=== PATIENT | female | born 1935 | race Caucasian/White ===

== ENCOUNTER 2016-07-24 11:00 | Day surgery (SDC) | payer MEDICARE, BC ==
[2016-07-22 11:50] VITALS: BMI 27.1
[~2016-07-24 11:00] MED LIST: LACTATED RINGERS 1,000 ML IV SCH; MIDAZOLAM 2 MG/2 ML VIAL IV PRN; ONDANSETRON 4 MG/2 ML VIAL IVP ONE; Pre Op ABX Message 1 EACH MISC MISCELLANE ONE
[2016-07-24] MEDS ORDERED: fentaNYL (PF) 50 MCG/ML 2 ML AMP ONE (12:49)
[2016-07-24] MEDS ORDERED: SODIUM CHLORIDE 0.9% 50 ML with ceFAZolin 2,000 MG IV ONE ×2 (12:49)
[2016-07-24] MEDS ORDERED: NEOSTIGMINE 1 MG/ML 10 ML VIAL ONE (12:49)
[2016-07-24] MEDS ORDERED: GLYCOPYRROLATE 0.2 MG/ML 2 ML VIAL ONE (12:49)
[2016-07-24] MEDS ORDERED: PROPOFOL 10 MG/ML 20 ML VIAL IV ONE (12:49)
[2016-07-24] MEDS ORDERED: MIDAZOLAM 2 MG/2 ML VIAL ONE (12:49)
[2016-07-24] MEDS ORDERED: LIDOCAINE 1% INJ 10MG/ML (20 ML MDV) ONE (12:49)
[2016-07-24] MEDS ORDERED: ROPIVACAINE 5 MG/ML 30 ML VIAL ONE (12:49)
[2016-07-24] MEDS ORDERED: LIDOCAINE 2%-EPI 1:100,000 20 ML VIAL ONE (12:49)
[2016-07-24] MEDS ORDERED: ROCURONIUM BROMIDE 10 MG/ML 10 ML VIAL IV ONE (12:49)
[2016-07-24] MEDS ORDERED: HYDROmorphone (PF) 1 MG/ML ONE (12:49)
[2016-07-24] MEDS ORDERED: SUCCINYLCHOLINE CHLORIDE 100 MG/5 ML SYR IV ONE (12:49)
[2016-07-24] MEDS ORDERED: EPINEPHrine 4 MG in SODIUM CHLORIDE 0.9% IRRIGATIO 3,000 ML IRRIGATION ONE ×8 (13:24)
[2016-07-24] MEDS ORDERED: LACTATED RINGERS 1,000 ML IV ONE (15:08)
[2016-07-24] MEDS: HYDROmorphone 1 MG/ML 1 ML SYRINGE IVP PRN ×4 (15:20→16:00)
[2016-07-24 15:24] VITALS: TEMP 96.8
--- NOTE | 2016-07-24 16:13 | P.ONQ ---
Anesthesiology Proc Note - PNB - Peripheral Nerve Block Performed Left Interscalene Single Time Out Performed: Yes Procedure Start Time: 15:50 Procedure Stop Time: 16:00 Indication: Acute Post-Operative Pain, Analgesia Sedation Type: Sedate with meaningful contact maintained Preparation: Sterile Prep Position: Supine Catheter: None Needle Types: Other (see comment) (22go 2" stimuplex @.03Ma) Needle Size: 50mm (2") Needle Gauge: Other (see comment) (22 ga) Technique: Ultrasound Injectate: Other (see comment) (1% lido, 0.25% ropivicaine, epi 5 mcg/cc) Adjunct: Epinephrine (see comment for dilution ratio) (5 mcg/cc) Blood Aspirated: No Pain Paresthesia on Injection Noted: No Resistance on Injection: Normal Events: Uneventful and Well Tolerated
[2016-07-24] MEDS ORDERED: LIDOCAINE 2%-EPI 1:100,000 20 ML VIAL SUBMUCOSAL ONE (16:15)
[2016-07-24] MEDS ORDERED: ROPIVACAINE 5 MG/ML 30 ML VIAL MISCELLANE ONE (16:15)
[2016-07-24 17:06] VITALS: RESP 16
--- NOTE | 2016-07-24 17:47 | P.OP ---
Date of Procedure: 07/24/16 Procedure(s) Performed: PREOPERATIVE DIAGNOSES: 1. 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 2. Chronic impingement syndrome. 3. Acromioclavicular osteoarthritis. 4. Superior labral degenerative tear. 5. Long head biceps chronic rupture 6. Glenohumeral osteoarthritis POSTOPERATIVE DIAGNOSES: 1. Left shoulder rotator cuff tear (supraspinatus, infraspinatus, 3.5 cm). 2. Chronic impingement syndrome. 3. Severe humeral head osteoarthritis, grade 4 4. Acromioclavicular osteoarthritis. 5. Labral degenerative tear. 6. Adhesive capsulitis, mild. 7. Long head biceps chronic rupture PROCEDURES PERFORMED: 1. Left shoulder arthroscopy with mini open rotator cuff repair. 2. Arthroscopic partial distal clavicle excision 3. Arthroscopic lysis of adhesions with manipulation 4. Arthroscopic subacromial decompression 5. Arthroscopic debridement degenerative labral tear 6. Arthroscopic partial synovectomy ANESTHESIA: General plus interscalene block. ESTIMATED BLOOD LOSS: Less than 25 mL TOURNIQUET: None BASTING PULLER: Ofelia Wilkins PA-C (Assistance with: patient positioning, camera operation, retraction, fixation, closure, dressing) COMPLICATIONS: None. DISPOSITION: To postanesthesia care unit INDICATIONS: Patricia is an 81-year-old female with a history of a significant rotator cuff tear involving the left shoulder. This has caused severe disability with inability to raise the arm as well as significant pain. Symptoms have been ongoing and progressive over a 6-8 month time frame. MRI has confirmed findings and allowed for adequate preoperative planning. I have discussed options of treatment in detail and the patient wishes to proceed with an arthroscopic approach possibly combined with a mini open rotator cuff repair for treatment of this problem. However, considering the size and chronicity of the rotator cuff tear, the recovery may possibly be prolonged. I discussed potential risks and complications and the patient wishes to proceed with surgery. We have discussed these risks as being inclusive of, but not limited to: Bleeding, infection, scarring, discomfort, blood vessel and/or nerve damage, need for further surgery, failure of the repair, continued pain after surgery, stiffness, and continued weakness. She shows good understanding of these potential risks. The consent form has been signed. PROCEDURE: Appropriate consent was obtained from the patient. The patient was taken to the operating room and placed in the supine position. General anesthesia was initiated and after confirmation of adequate anesthesia, the patients left shoulder was examined. Initial range of motion showed flexion to 150, abduction to 150, external rotation to 60 and internal rotation to 50. Gentle manipulation was performed using Codmans paradox maneuver such that range of motion was improved to 170 flexion, 170 abduction, 75 external rotation and 75 internal rotation. The shoulder was stable. Next, the patient was rotated into the lateral decubitus position and stabilized to the table with a julien bag and padded straps. Care was taken to make sure that all pressure points were adequately padded. Bear-hugger was used along with bilateral leg sequential compression devices. Prepping and draping was completed in the usual aseptic fashion using ChloraPrep. The patient received intravenous antibiotics prior to incision. The shoulder was suspended from traction with 10 lbs. of weight in a position of 45 degrees abduction. Landmarks were outlined with a skin marking pen. Time out was called, confirming patient name, side, procedure, availability of equipment, and administration of antibiotics. A spinal needle was inserted into the glenohumeral joint and fluid was administered to distend the joint. No significant pressure was noted after 100 mL was administered. A posterior portal was created using an 11 blade and the arthroscopic canula, over a dull trocar, was carefully inserted into the joint. Arthroscopy then commenced. An anterior portal was inserted in the rotator interval area using inside-out technique. Biceps tendon was not apparent, indicating chronic rupture and retraction. Teres minor was normal. Hyaline cartilage of the glenoid was fairly normal except for a small full-thickness focal defect on the anterior aspect of the mid glenoid. This was debrided using a shaver, removing the unstable cartilage in this region. The humeral head however had severe grade 4 osteoarthritis involving the entire humeral head. There was really no significant normal cartilage remaining on the humeral head. Evaluation of the remainder of the rotator cuff showed significant full- thickness tearing involving the entire supraspinatus and part of the infraspinatus. The tear measured approximately 3.5 cm in size. Bursal tissue and impinging spur could be clearly seen through the rotator cuff defect which likely contributed to the tear. No loose bodies were noted in the joint. Superior labrum showed some degenerative tearing but was well-attached. Negative peel back sign. Loose fibers and the superior labrum were removed easily with a shaver. There was also evidence of minor degenerative labral tearing in the inferior area. Loose fibers of labrum in this area were debrided away back to stable labrum. Synovitis was noted superior to the superior labrum and within the rotator interval. This was debrided and removed where the capsule appeared inflamed, using an arthroscopic shaver. Attention was then directed to the subacromial space. The camera and instruments were redirected into the subacromial space and bursoscopy was performed. The patients bursa was inflamed and thickened, indicating chronic bursitis. A lateral portal was created using outside-in technique. The supraspinatus tendon was examined particularly closely. There was an approximately 3.5 cm full thickness tear, involving the supraspinatus and infraspinatus. Loose fibers of the tear were debrided back to stable tissue using a shaver and the footprint of the rotator cuff was abraded back to bleeding bone using a shaver and rasp. The undersurface of the acromion had frictional changes consistent with impingement syndrome. The underside of the acromion anteriorly was cleared of soft tissue using an arthroscopic radiofrequency ablator. The frictional changes of the rotator cuff matched the location of the rotator cuff tear in the critical zone. A formal subacromial decompression was performed using a alexandra. Approximately 4-5 mm of material was removed from the anterior-inferior corner of the acromion. This resection was beveled upwards laterally, and carried to the AC joint. The AC joint appeared arthritic with inferior spurring. This spurring was removed with a alexandra, co-planing the resection with the acromial resection. The rotator cuff tear was then repaired as follows. A mini open incision was created directly at the lateral portal and carried down through skin and into subcutaneous tissue and down to deltoid fascia. Deltoid fascia was split in line with its fibers for no more than 3.5 cm from the acromial border. Self- retaining retractor was applied without detaching any portion of the deltoid. Visualization was excellent. Any extraneous/degenerative tissue was removed manually with a dissecting scissor. Finishing touches with a rasp were applied to the rotator cuff footprint. Tag stitches were placed in the edge of the tear and mobility of the tear was tested. Mobility was adequate. First, one 4.75 mm preloaded anchor from [employer] was deployed just lateral to the articular margin at the medial side of the rotator cuff footprint. Mattress sutures were deployed into the appropriate location on the tendons. Next, fiber tape was used in 2 locations one on the anterior portion of the supraspinatus, and the other on the infraspinatus with reverse mattress deployment. These sutures were then deployed into 4.75 mm Ar[employer] swivel lock anchors. It should be noted that the tension on the sutures was adjusted properly prior to deployment of the anchor. There was excellent coverage of the rotator cuff over the footprint using this technique. Subsequently, the mattress sutures were tied down securely. Rotation of the shoulder showed complete closure of the cuff defect. The repair was stable. Subsequently, O Vicryl suture was used in the deltoid split, followed by 2-0 Vicryl in the subcutaneous tissues. A running 3-0 Monocryl subcuticular stitch was then used for the mini open surgical incision. 4-0 Monocryl was used to close the portal holes. Dermabond was applied as well as sterile dressing. The shoulder was then placed into a sling shot type sling and the patient was transferred to recovery room in stable condition. Sponge and needle counts were correct.
[2016-07-24 18:14] VITALS: BP 159/77; PULSE 70
== END 2016-07-24 18:53 | disposition home or self-care (01) ==
LOC: OR 11:00
PROVIDERS: ATTEND Orthopaedic Surgery
DX: M75.122 Complete rotator cuff tear or rupture of left shoulder, not specified as traumatic (principal); M75.42 Impingement syndrome of left shoulder; M19.012 Primary osteoarthritis, left shoulder; M25.412 Effusion, left shoulder; S43.492A Other sprain of left shoulder joint, initial encounter; M75.02 Adhesive capsulitis of left shoulder; S46.112A Strain of muscle, fascia and tendon of long head of biceps, left arm, initial encounter; M65.812 Other synovitis and tenosynovitis, left shoulder; X58.XXXA Exposure to other specified factors, initial encounter; E78.5 Hyperlipidemia, unspecified; Z79.899 Other long term (current) drug therapy; Z88.1 Allergy status to other antibiotic agents
CPT/HCPCS: 64415; 23412; 29824; 29825; C1713 ×2; C1894; J0171; J2250; J2710; J2405; J2001; J3010; J1170; J0690; J2795; J0330; J2704

== ENCOUNTER 2024-03-12 19:11 | Emergency (ER) | payer MEDICARE, BC ==
[2024-03-12 19:25] VITALS: TEMP 97.5
--- NOTE | 2024-03-12 19:43 | ED ---
General Adult HPI - General Chief complaint: Fall Stated complaint: Fall Time Seen by Provider: 03/12/24 19:13 Source: EMS Mode of arrival: EMS Limitations: altered mental status - History of Present Illness Initial comments: Dictation was produced using Superhuman dictation software. please excuse any grammatical, word or spelling errors. Chief Complaint: 88-year-old female presents to the emergency department after being found down History of Present Illness: Patient is an 88-year-old female presents to the emergency department after being found down the garage floor. Patient was brought in by EMS patient had been on the ground for unknown amount of time. Patient has worsening dementia. Patient is a poor historian can tell me her name but cannot tell me anything else. She however denies any pain. The ROS documented in this emergency department record has been reviewed and confirmed by me. Those systems with pertinent positive or negative responses have been documented in the HPI. All other systems are other negative and/or noncontributory. - Related Data Home Medications Medication Instructions Recorded Confirmed Simvastatin [Zocor] 20 mg PO DAILY 03/07/15 06/21/17 Multivit-Min/Iron/Folic Acid/K 2 cap PO DAILY 07/22/16 06/21/17 [Women's Multivitamin] Ascorbic Acid [Vitamin C with Heather 500 mg PO DAILY 06/11/17 06/11/17 Hips] Calcium/Magnesium/Zinc 1 tab PO DAILY 06/11/17 06/21/17 [Rehbbsi-Jsmqclpgr-Xyfk Tablet] Cholecalciferol [Vitamin D3 (10 400 unit PO DAILY 06/11/17 06/11/17 Mcg = 400 Iu)] Lutein 6 Mg 6 mg PO DAILY 06/11/17 06/11/17 Previous Rx's Medication Instructions Recorded Aspirin 325 mg PO BID #120 tab 06/21/17 HYDROcodone/APAP 5-325MG [[place] 1 - 2 each PO Q4-6H PRN #90 tab 06/21/17 5-325] Sennosides-Docusate Sodium 1 tab PO BID #60 tablet 06/21/17 [Senokot-S] Allergies Allergy/AdvReac Type Severity Reaction Status Date / Time erythromycin base Allergy unknow Verified 03/12/24 19:25 peanut [Peanut Butter] AdvReac stomach Verified 03/12/24 19:25 ache Review of Systems ROS Statement: Those systems with pertinent positive or pertinent negative responses have been documented in the HPI. ROS Other: All systems not noted in ROS Statement are negative. Past Medical History Past Medical History: Cancer, Hyperlipidemia Additional Past Medical History / Comment(s): hx ulcer, skin cancer rt thigh History of Any Multi-Drug Resistant Organisms: None Reported Past Surgical History: Adenoidectomy, Back Surgery, Bowel Resection, Hernia Repair, Hysterectomy, Joint Replacement, Tonsillectomy Additional Past Surgical History / Comment(s): rt knee replacement, back -L4 and L5, isrrael cataracts, colonoscopy Past Anesthesia/Blood Transfusion Reactions: No Reported Reaction Additional Past Anesthesia/Blood Transfusion Reaction / Comment(s): . Past Psychological History: No Psychological Hx Reported Past Alcohol Use History: None Reported Past Drug Use History: None Reported - Past Family History Sister(s) Family Medical History: Cancer Mother Family Medical History: Cancer Additional Family Medical History / Comment(s): brain Father Family Medical History: Renal Disease Additional Family Medical History / Comment(s): Father of kidney disease at age 80 yrs. Brother(s) Family Medical History: Diabetes Mellitus Daughter(s) Family Medical History: No Reported History (Patient has 3 daughters no major medical problems) Son(s) Family Medical History: No Reported History General Exam - General Exam Comments Initial Comments: PHYSICAL EXAM: General Impression: Alert and oriented x1/4, not in acute distress HEENT: Normocephalic atraumatic, extra-ocular movements intact, pupils equal and reactive to light bilaterally, mucous membranes moist. Cardiovascular: Heart regular rate and rhythm Chest: Able to complete full sentences, no retractions, no tachypnea Abdomen: abdomen soft, non-tender, non-distended, no organomegaly Musculoskeletal: Pulses present and equal in all extremities, no peripheral edema Motor: no focal deficits noted Neurological: CN II-XII grossly intact, no focal motor or sensory deficits noted Skin: Intact with no visualized rashes Psych: Normal affect and mood Limitations: altered mental status Course Vital Signs 03/12/24 03/12/24 19:16 19:25 Temperature 97.5 F L Pulse Rate 66 Respiratory 18 Rate Blood Pressure 100/75 O2 Sat by Pulse 96 Oximetry EKG Findings - EKG Comments: EKG Findings:: My EKG interpretation: Ventricular rate 52, sinus bradycardia, RI interval 164, cures 149, QTc 480. No RI prolongation, no QTC prolongation, no ST or T-wave changes noted. Widened QRS compared to EKG from June 09, 2017, this EKG is nonspecific Medical Decision Making - Medical Decision Making Was pt. sent in by a medical professional or institution (, PA, FORENSIC PHOTOGRAPHER, urgent care, hospital, or care home...) When possible be specific @ -No Did you speak to anyone other than the patient for history (EMS, parent, family, police, friend...)? What history was obtained from this source @ -No Did you review nursing and triage notes (agree or disagree)? Why? @ -I reviewed and agree with nursing and triage notes Were old charts reviewed (outside hosp., previous admission, EMS record, old EKG, old radiological studies, urgent care reports/EKG's, care home records)? Report findings @ -No old charts were reviewed Differential Diagnosis (chest pain, altered mental status, abdominal pain women, abdominal pain men, vaginal bleeding, musculoskeletal, weakness, fever, dyspnea, syncope, headache, dizziness, GI bleed, back pain, seizure, CVA, palpatations, mental health)? @ -Differential Dizziness: Benign paroxysmal positional Vertigo, Meniere's disease, otitis media, acoustic neuroma, vertebrobasilar insufficiency, cerebellar stroke, encephalitis, hypovolemic, arrhythmia, coronary artery syndrome, anemia, this is not meant to be an all-inclusive list EKG interpreted by me (3pts min.). @ -See above X-rays interpreted by me (1pt min.). @ -X-ray pelvis x-ray shows no acute processes CT interpreted by me (1pt min.). @ -CT head right frontal lobe mass with vasogenic edema C-spine shows no acute processes chest abdomen pelvis shows no acute processes U/S interpreted by me (1pt. min.). @ -None done What testing was considered but not performed or refused? (CT, X-rays, U/S, labs)? Why? @ -None What meds were considered but not given or refused? Why? @ -None Was smoking cessation discussed for >3mins.? @ -No Were there social determinants of health that impacted care today? How? (Homelessness, low income, unemployed, alcoholism, drug addiction, transportation, low edu. Level, literacy, decrease access to med. care, custodial, rehab)? @ -No Was there de-escalation of care discussed even if they declined (Discuss DNR or withdrawal of care, Hospice)? DNR status @ -No What co-morbidities impacted this encounter? (DM, HTN, Smoking, COPD, CAD, Cancer, CVA, ARF, Chemo, Hep., AIDS, mental health diagnosis, sleep apnea, morbid obesity)? @ -None Was patient admitted / discharged? Hospital course, mention meds given and route, prescriptions, significant lab abnormalities, going to OR and other per tinent info. @ -80-year-old female presents emergency department with dizziness. Vital signs upon arrival are within acceptable limits. There is concern of fall. Family arrived at the bedside later states that she was found on the carpet in the garage on the ground. It sounds clear how long patient was on the floor. Evaluation obtained. CBC, metabolic panel is unremarkable. Troponin is viry vated 0.303. Family did not report chest pain but they did report that she has been complaining of dizziness. Patient given Decadron after CT brain showed intracranial mass with surrounding vasogenic edema. Family request transfer to [facility]. Did you discuss the management of the patient with other professionals (professionals i.e. , PA, FORENSIC PHOTOGRAPHER, lab, RT, psych nurse, healthcare social worker, track supervisor, teacher, first aid officer, leather case finisher)? Give summary @ -Discussed with [facility] transfer line. Dr. Obrien or neurosurgery agreeeable for transfer. case also discussed w ER physician Dr. Coats for ER to ER transfer. Was critical care preformed (if so, how long)? @ -No Undiagnosed new problem with uncertain prognosis? @ -No Drug Therapy requiring intensive monitoring for toxicity (Heparin, Nitro, Insulin, Cardizem)? @ -No Were any procedures done? @ -No Diagnosis/symptom? Acute, or Chronic, or Acute on Chronic? Uncomplicated (without systemic symptoms) or Complicated (systemic symptoms)? @ -Brain mass, unclear etiology associated with dizziness and fall Side effects of treatment? @ -No Exacerbation, Progression, or Severe Exacerbation? @ -No Poses a threat to life or bodily function? How? (Chest pain, USA, VT, pneumonia, PE, COPD, DKA, ARF, appy, cholecystitis, CVA, Diverticulitis, Homicidal, Suicidal, threat to staff... and all critical care pts) @ -yes - Lab Data Result diagrams: 03/12/24 19:36 03/12/24 19:36 Lab Results 03/12/24 03/12/24 03/12/24 Range/Units 19:36 19:36 19:36 WBC 14.4 H (3.8-10.6) k/uL RBC 4.80 (3.80-5.40) m/uL Hgb 14.7 (11.4-16.0) gm/dL Hct 44.7 (34.0-46.0) % MCV 93.1 (80.0-100.0) fL MCH 30.7 (25.0-35.0) pg MCHC 32.9 (31.0-37.0) g/dL RDW 13.5 (11.5-15.5) % Plt Count 259 (150-450) k/uL MPV 8.8 Neutrophils % 83 % Lymphocytes % 10 % Monocytes % 6 % Eosinophils % 0 % Basophils % 0 % Neutrophils # 11.9 H (1.3-7.7) k/uL Lymphocytes # 1.5 (1.0-4.8) k/uL Monocytes # 0.9 (0-1.0) k/uL Eosinophils # 0.0 (0-0.7) k/uL Basophils # 0.0 (0-0.2) k/uL PT 11.1 (10.0-12.5) sec INR 1.0 (<1.2) APTT 22.7 (22.0-30.0) sec Sodium 139 (137-145) mmol/L Potassium 3.7 (3.5-5.1) mmol/L Chloride 107 (98-107) mmol/L Carbon Dioxide 23 (22-30) mmol/L Anion Gap 9 mmol/L BUN 18 H (7-17) mg/dL Creatinine 0.54 (0.52-1.04) mg/dL Est GFR (CKD-EPI)AfAm >90 (>60 ml/min/1.73 sqM) Est GFR (CKD-EPI)NonAf 85 (>60 ml/min/1.73 sqM) Glucose 107 H (74-99) mg/dL Calcium 9.1 (8.4-10.2) mg/dL Total Bilirubin 1.5 H (0.2-1.3) mg/dL AST 101 H (14-36) U/L ALT 33 (4-34) U/L Alkaline Phosphatase 62 (38-126) U/L Troponin I (0.000-0.034) ng/mL Total Protein 6.0 L (6.3-8.2) g/dL Albumin 3.6 (3.5-5.0) g/dL Urine Opiates Screen (NotDetected) Ur Oxycodone Screen (NotDetected) Urine Methadone Screen (NotDetected) Ur Barbiturates Screen (NotDetected) U Tricyclic Antidepress (NotDetected) Ur Phencyclidine Scrn (NotDetected) Ur Amphetamines Screen (NotDetected) U Methamphetamines Scrn (NotDetected) U Benzodiazepines Scrn (NotDetected) Urine Cocaine Screen (NotDetected) U Marijuana (THC) Screen (NotDetected) Serum Alcohol <10 mg/dL Blood Type Blood Type Recheck Bld Type Recheck Status Antibody Screen Spec Expiration Date 03/12/24 03/12/24 03/12/24 Range/Units 19:36 19:36 19:47 WBC (3.8-10.6) k/uL RBC (3.80-5.40) m/uL Hgb (11.4-16.0) gm/dL Hct (34.0-46.0) % MCV (80.0-100.0) fL MCH (25.0-35.0) pg MCHC (31.0-37.0) g/dL RDW (11.5-15.5) % Plt Count (150-450) k/uL MPV Neutrophils % % Lymphocytes % % Monocytes % % Eosinophils % % Basophils % % Neutrophils # (1.3-7.7) k/uL Lymphocytes # (1.0-4.8) k/uL Monocytes # (0-1.0) k/uL Eosinophils # (0-0.7) k/uL Basophils # (0-0.2) k/uL PT (10.0-12.5) sec INR (<1.2) APTT (22.0-30.0) sec Sodium (137-145) mmol/L Potassium (3.5-5.1) mmol/L Chloride (98-107) mmol/L Carbon Dioxide (22-30) mmol/L Anion Gap mmol/L BUN (7-17) mg/dL Creatinine (0.52-1.04) mg/dL Est GFR (CKD-EPI)AfAm (>60 ml/min/1.73 sqM) Est GFR (CKD-EPI)NonAf (>60 ml/min/1.73 sqM) Glucose (74-99) mg/dL Calcium (8.4-10.2) mg/dL Total Bilirubin (0.2-1.3) mg/dL AST (14-36) U/L ALT (4-34) U/L Alkaline Phosphatase (38-126) U/L Troponin I 0.303 H* (0.000-0.034) ng/mL Total Protein (6.3-8.2) g/dL Albumin (3.5-5.0) g/dL Urine Opiates Screen Not Detected (NotDetected) Ur Oxycodone Screen Not Detected (NotDetected) Urine Methadone Screen Not Detected (NotDetected) Ur Barbiturates Screen Not Detected (NotDetected) U Tricyclic Antidepress Not Detected (NotDetected) Ur Phencyclidine Scrn Not Detected (NotDetected) Ur Amphetamines Screen Not Detected (NotDetected) U Methamphetamines Scrn Not Detected (NotDetected) U Benzodiazepines Scrn Not Detected (NotDetected) Urine Cocaine Screen Not Detected (NotDetected) U Marijuana (THC) Screen Not Detected (NotDetected) Serum Alcohol mg/dL Blood Type O Positive Blood Type Recheck No Previous Record Bld Type Recheck Status CABO Indicated Antibody Screen NEGATIVE Spec Expiration Date 03/15/20242335 Disposition Clinical Impression: Brain mass Disposition: OTHER INSTITUTION NOT DEFINED Condition: Fair Referrals: Darian Doherty DO [Primary Care Provider] - 1-2 days - Out of Hospital Transfer - Req. Specs Out of Hospital Transfer - Requested Specifics: Other Emergency Center ([facility]
[2024-03-12 20:10] LABS: Prothrombin Time 11.1 sec (10.0-12.5)
[2024-03-12 20:15] LABS: ALT 33 U/L (4-34); AST 101 U/L (14-36); African American GFR (CKD) >90 (>60 ml/min/1.73 sqM); Albumin 3.6 g/dL (3.5-5.0); Alcohol <10 mg/dL; Alkaline Phosphatase 62 U/L (38-126); Anion Gap 9 mmol/L; Blood Urea Nitrogen 18 mg/dL (7-17); Calcium 9.1 mg/dL (8.4-10.2); Carbon Dioxide 23 mmol/L (22-30); Chloride 107 mmol/L (98-107); Glucose 107 mg/dL (74-99); Non-African American GFR(CKD) 85 (>60 ml/min/1.73 sqM); Potassium 3.7 mmol/L (3.5-5.1); Sodium 139 mmol/L (137-145); Total Bilirubin 1.5 mg/dL (0.2-1.3)
[2024-03-12 20:17] LABS: Partial Thromboplastin Time 22.7 sec (22.0-30.0)
--- NOTE | 2024-03-12 20:22 | XR ---
EXAMINATION TYPE: XR pelvis AP view DATE OF EXAM: 03/12/2024 8:14 PM CLINICAL INDICATION: Female, 88 years old with history of Trauma; [facility] COMPARISON: None TECHNIQUE: XR pelvis AP view, examined in a single projection. FINDINGS: There is no evidence of fracture or dislocation. There is no soft tissue abnormality. No a bnormal calcifications are present. The spine appears intact. The hips appear intact. Osteophyte form ation of the superior acetabulum bilaterally with mild joint space narrowing. Severe joint space narr owing of the right hip and mild of the left hip. IMPRESSION: No acute osseous pathology. Severe right hip osteoarthrosis.
--- NOTE | 2024-03-12 20:23 | XR ---
EXAMINATION TYPE: XR chest 1V portable DATE OF EXAM: 03/12/2024 8:14 PM CLINICAL INDICATION: Female, 88 years old with history of trauma; H COMPARISON: Chest radiographs from TECHNIQUE: XR chest 1V portable Frontal view of the chest. FINDINGS: Lungs/Pleura: Low lung volumes are present. There is no evidence of pleural effusion, focal consolida tion, or pneumothorax. Pulmonary vascularity: Unremarkable. Heart/mediastinum: Cardiomediastinal silhouette is prominent in size. Atherosclerotic calcifications are seen in the aorta. Musculoskeletal: No acute osseous pathology. Other findings: None Lines/Tubes: IMPRESSION: Low lung volumes with a generalized hazy appearance which could represent atelectasis versus pulmonar y edema correlate with serum BNP.
[2024-03-12 20:29] LABS: Basophils % (A) 0 %; Eosinophils % (A) 0 %; HCT 44.7 % (34.0-46.0); HGB 14.7 gm/dL (11.4-16.0); Lymphocytes # (A) 1.5 k/uL (1.0-4.8); Lymphocytes % (A) 10 %; MCH 30.7 pg (25.0-35.0); MCHC 32.9 g/dL (31.0-37.0); MCV 93.1 fL (80.0-100.0); Mean Platelet Volume 8.8; Monocytes # (A) 0.9 k/uL (0-1.0); Monocytes % (A) 6 %; Neutrophils # (A) 11.9 k/uL (1.3-7.7); Neutrophils % (A) 83 %; Platelet Count 259 k/uL (150-450); RDW 13.5 % (11.5-15.5); WBC 14.4 k/uL (3.8-10.6)
[2024-03-12 20:33] LABS: Amphetamine Screen,Urine Not Detected (NotDetected); Barbiturate Screen,Urine Not Detected (NotDetected); Benzodiazepines Screen,Urine Not Detected (NotDetected); Cocaine Screen,Urine Not Detected (NotDetected); Methadone Screen, Urine Not Detected (NotDetected); Opiate Screen,Urine Not Detected (NotDetected); Oxycodone Screen, Urine Not Detected (NotDetected); Phencyclidine Screen,Urine Not Detected (NotDetected); Tricyclic Antidepressant,Urine Not Detected (NotDetected); Urn Cannabinoid Scrn Not Detected (NotDetected)
--- NOTE | 2024-03-12 21:00 | CT ---
EXAMINATION TYPE: CT brain cspine wo con CT DLP: 2998.5 mGycm, Automated exposure control for dose reduction was used. DATE OF EXAM: 03/12/2024 8:48 PM COMPARISON: None. CLINICAL INDICATION: Female, 88 years old with history of trauma; fall. pt found laying on floor AMS TECHNIQUE: Brain: Multiple axial CT images of the brain were obtained without IV contrast. Cspine: Axial CT images from the skull base to the inferior aspect of T2 we obtained without intraven ous contrast. Coronal and sagittal reformatted images were also reviewed. . FINDINGS: Brain: Extra-axial spaces: No abnormal extra-axial fluid collections. Ventricular system: Dilatation in proportion to cerebral atrophy. Cerebral parenchyma: There is vasogenic edema within the right frontal lobe surrounding a curvilinear high density lesion without line is thought to represent a sphere. Etiology uncertain. No evidence f or intracranial hemorrhage. Cerebral atrophy. No acute intraparenchymal hemorrhage. The rodrigues-white j unction is well differentiated. Cerebellum: Unremarkable. Mass effect: No evidence of midline shift. Intracranial vasculature: Atherosclerotic calcifications of the intracranial vessels. Soft tissues: Normal. Calvarium/osseous structures: No depressed skull fracture. Paranasal sinuses and mastoid air cells: Clear. Visualized orbits: Bilateral aphakia Cervical spine: Fracture: None. Osseous structures: Multilevel degenerative disc disease changes with endplate spurring and disc oste ophyte complex's. Vertebral alignment: Within normal limits. Spinal canal/Neural Foramina: No evidence of significant spinal canal narrowing. No evidence for sign ificant neural foraminal stenosis. Neck soft tissues: Prevertebral soft tissues are within normal limits. Other: The airway is patent. The lung apices are clear. IMPRESSION: 1. No evidence for intracranial hemorrhage. 2. Right frontal lobe vasogenic edema around a curvilinear high density lesion thought to be calcifi cation surrounding possibly a meningioma versus other etiologies. Further evaluation with MRI with IV contrast recommended. 3. No evidence of cervical spine fracture. 4. Moderate multilevel degenerative disc disease.
--- NOTE | 2024-03-12 21:19 | CT ---
EXAMINATION TYPE: CT ChestAbdPelvis w con CT DLP: 2998.5 mGycm, Automated exposure control for dose reduction was used. DATE OF EXAM: 03/12/2024 8:47 PM COMPARISON: None. CLINICAL INDICATION: Female, 88 years old with history of trauma; PHH, fall. pt found laying on floor AMS Technique: CT ChestAbdPelvis w con; Multiple axial images were obtained. Two-dimensional coronal and sagittal reconstructions were obtained. Contrast used:100ml mL of Isovue 300 with IV Contrast, Oral contrast used: without Oral Contrast Findings: CHEST: LUNGS/ PLEURA: No focal consolidation, pneumothorax or pleural effusion. 4 mm right middle lobe pulmonary nodule. AIRWAY: Patent and unremarkable. HEART: Size within normal limits. MEDIASTINUM: No gross evidence of adenopathy. VASCULATURE: No aortic aneurysm. MUSCULOSKELETAL: Mild wedging of the anterior aspect of T8 vertebral body. SOFT TISSUES/LYMPH NODES: Unremarkable. LOWER NECK: No significant findings. ABDOMEN: ABDOMEN LIVER: Diffusely hypoattenuating parenchyma. GALLBLADDER AND BILE DUCTS: Unremarkable. PANCREAS: Unremarkable. SPLEEN: Unremarkable. ADRENAL GLANDS: Unremarkable. KIDNEYS AND URETERS: Nonobstructing 2 mm right calculus. No left intrarenal hydronephrosis. Bilateral simple appearing renal cysts. PELVIS BLADDER: Unremarkable REPRODUCTIVE: Unremarkable. ABDOMEN & PELVIS STOMACH AND BOWEL: No evidence of bowel obstruction. Scattered colonic diverticula. PERITONEUM/RETROPERITONEUM: No evidence of pneumoperitoneum or free fluid. VASCULATURE: Moderate atherosclerotic calcifications are present throughout the abdominal aorta and i ts branches. No evidence of aortic aneurysm. MUSCULOSKELETAL: No acute osseous abnormalities. Moderate disc degeneration changes are present throu ghout the thoracolumbar spine. Moderate degeneration changes of the hips with joint space narrowing o steophyte formation. Moderate to severe degeneration changes throughout the spine. LYMPH NODES: No gross evidence for lymphadenopathy. SOFT TISSUE/ABDOMINAL WALL: Unremarkable IMPRESSION: 1. Indeterminate T8 vertebral body wedging correlate with mid back pain consider MRI. No additional evidence for acute traumatic process. 2. Mild hepatic steatosis. 3. Bilateral simple appearing renal cysts. 4. No obstructive right renal calculi. 5. Scattered colonic diverticula.
[2024-03-12] MEDS: DEXAMETHASONE SOD PHOSPHATE 10 MG/ML 1 ML VIAL IV STA (21:23)
[2024-03-12 21:57] VITALS: BP 135/70; PULSE 68; RESP 16
[2024-03-12] MEDS: SODIUM CHLORIDE 0.9% 1,000 ML IV STA (22:11)
[2024-03-12 22:53] LABS: Appearance,Urine Clear (Clear); Bacteria,Urine Rare /hpf; Bilirubin,Urine Negative (Negative); Blood,Urine Small (Negative); Budding Yeast,Urine Rare /hpf; Color,Urine Yellow; Glucose,Urine (UA) Trace (Negative); Ketones,Urine 2+ (Negative); Leukocyte Esterase,Urine Small (Negative); Nitrite,Urine Negative (Negative); Protein,Urine 1+ (Negative); RBC,Urine 2 /hpf (0-5); Specific Gravity,Urine 1.025 (1.001-1.035); Squamous Epithelial Cell,Urine 1 /hpf (0-4); Urobilinogen,Urine <2.0 mg/dL (<2.0); WBC,Urine 5 /hpf (0-5)
== END 2024-03-12 22:54 | disposition other institution (70) ==
LOC: EC 19:11
CPT/HCPCS: 36415; 70450; 71045; 71260; 72125; 72170; 74177; 80053; 80306; 80320; 81001; 82550; 84484; 85025; 85610; 85730; 86850; 86900; 86901; 93005; 96374; 99285

== ENCOUNTER 2024-04-16 01:10 | Inpatient (IN) | payer MEDICARE, BC ==
--- NOTE | 2024-04-16 01:19 | ED ---
Fall HPI - General Chief Complaint: Fall Stated Complaint: Fall Time Seen by Provider: 04/16/24 01:18 Source: EMS, RN notes reviewed, old records reviewed Mode of arrival: EMS Limitations: altered mental status, physical limitation - History of Present Illness Initial Comments: This is an 88-year-old female to the ER for evaluation of deformity of the right lower extremity concern for hip fracture not bearing weight on her right side complaining of pain with movement. 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 Witnessed: yes, by living facility staff Place Fall Occurred: home Loss of Consciousness: none Prolonged Down Time?: no Symptoms Prior to Fall: none Location - Extremities: Right: Leg Severity: severe Severity scale (1-10): 10 Context: tripped/slipped Associated Symptoms: denies - Related Data Home Medications Medication Instructions Recorded Confirmed Acetaminophen Tab [Tylenol] 500 mg PO TID 04/16/24 04/16/24 Losartan [Cozaar] 25 mg PO DAILY 04/16/24 04/16/24 Melatonin 3 mg PO HS 04/16/24 04/16/24 levETIRAcetam [Keppra] 500 mg PO Q12H 04/16/24 04/16/24 Previous Rx's Medication Instructions Recorded ALPRAZolam [Xanax] 0.25 mg PO Q12H PRN #4 tab 04/19/24 Aspirin [Adult Low Dose Aspirin EC] 81 mg PO BID 30 Days #60 tab 04/19/24 HYDROcodone/APAP 5-325MG [[place] 1 tab PO Q6HR PRN #28 tab 04/19/24 5-325] Magnesium Hydroxide [Milk of 2,400 mg PO DAILY PRN ml 04/19/24 Magnesia] QUEtiapine [SEROquel] 12.5 mg PO HS PRN #2 tab 04/19/24 Sennosides [Senokot] 2 tab PO DAILY PRN #60 tablet 04/19/24 Allergies Allergy/AdvReac Type Severity Reaction Status Date / Time erythromycin base Allergy Unknown Verified 04/16/24 10:15 peanut [Peanut Butter] AdvReac stomach Verified 04/16/24 10:15 ache Review of Systems ROS Statement: Those systems with pertinent positive or pertinent negative responses have been documented in the HPI. ROS Other: All systems not noted in ROS Statement are negative. Past Medical History Past Medical History: Cancer, Hyperlipidemia Additional Past Medical History / Comment(s): hx ulcer, skin cancer rt thigh History of Any Multi-Drug Resistant Organisms: None Reported Past Surgical History: Adenoidectomy, Back Surgery, Bowel Resection, Hernia Repair, Hysterectomy, Joint Replacement, Tonsillectomy Additional Past Surgical History / Comment(s): rt knee replacement, back -L4 and L5, [place] cataracts, colonoscopy Past Anesthesia/Blood Transfusion Reactions: No Reported Reaction Additional Past Anesthesia/Blood Transfusion Reaction / Comment(s): . Past Psychological History: No Psychological Hx Reported Past Alcohol Use History: None Reported Past Drug Use History: None Reported - Past Family History Sister(s) Family Medical History: Cancer Mother Family Medical History: Cancer Additional Family Medical History / Comment(s): brain Father Family Medical History: Renal Disease Additional Family Medical History / Comment(s): Father of kidney disease at age 80 yrs. Brother(s) Family Medical History: Diabetes Mellitus Daughter(s) Family Medical History: No Reported History (Patient has 3 daughters no major medical problems) Son(s) Family Medical History: No Reported History General Exam Limitations: altered mental status General appearance: alert, in no apparent distress Head exam: Present: atraumatic, normocephalic, normal inspection Eye exam: Present: normal appearance, PERRL, EOMI. Absent: scleral icterus, conjunctival injection, periorbital swelling ENT exam: Present: normal exam, mucous membranes moist Neck exam: Present: normal inspection. Absent: tenderness, meningismus, lymphadenopathy Respiratory exam: Present: normal lung sounds bilaterally. Absent: respiratory distress, wheezes, rales, rhonchi, stridor Cardiovascular Exam: Present: regular rate, normal rhythm, normal heart sounds. Absent: systolic murmur, diastolic murmur, rubs, gallop, clicks GI/Abdominal exam: Present: soft, normal bowel sounds. Absent: distended, tenderness, guarding, rebound, rigid Extremities exam: Present: normal inspection, full ROM, normal capillary refill. Absent: tenderness, pedal edema, joint swelling, calf tenderness Back exam: Present: normal inspection Neurological exam: Present: alert, oriented X3, CN II-XII intact Psychiatric exam: Present: normal affect, normal mood Skin exam: Present: warm, dry, intact, normal color. Absent: rash Course Vital Signs 04/16/24 01:11 Temperature 98.4 F Pulse Rate 83 Respiratory 16 Rate Blood Pressure 107/81 O2 Sat by Pulse 96 Oximetry - Reevaluation(s) Reevaluation #1: 04/16/24 02:55 Medical records reviewed Reevaluation #2: 04/16/24 02:55 Patient is in no acute pain Reevaluation #3: 04/16/24 02:55 Patient informed of results and questions answered Reevaluation #4: Was pt. sent in by a medical professional or institution (, [facility], [employer], urgent care, hospital, or alf...) When possible be specific @ -no Did you speak to anyone other than the patient for history (EMS, parent, family, police, friend...)? What history was obtained from this source @ -no Did you review nursing and triage notes (agree or disagree)? Why? @ -agree Are old charts reviewed (outside hosp., previous admission, EMS record, old EKG, old radiological studies, urgent care reports/EKG's, alf records)? Report findings @ -yes Differential Diagnosis (chest pain, altered mental status, abdominal pain women, abdominal pain men, vaginal bleeding, weakness, fever, dyspnea, syncope, headache, dizziness, GI bleed, back pain, seizure, CVA, palpatations, mental health, musculoskeletal)? @ -prior EKG interpreted by me (3pts min.). @ -yes X-rays interpreted by me (1pt min.). @ -yes negative for acute disease CT interpreted by me (1pt min.). @ -yes negative for acute disease U/S interpreted by me (1pt. min.). @ -no What testing was considered but not performed or refused? (CT, X-rays, U/S, labs)? Why? @ -none What meds were considered but not given or refused? Why? @ -none Did you discuss the management of the patient with other professionals (professionals i.e. SHIL[facility] Lala, [employer], lab, RT, psych nurse, social service agency director, poultry slaughterer, teacher, environmental technical officer, outsole caser)? Give summary @ -no Was smoking cessation discussed for >3mins.? @ -no Was critical care preformed (if so, how long)? @ -no Were there social determinants of health that impacted care today? How? (Homelessness, low income, unemployed, alcoholism, drug addiction, transportation, low edu. Level, literacy, decrease access to med. care, senior living, rehab)? @ -none Was there de-escalation of care discussed even if they declined (Discuss DNR or withdrawal of care, Hospice)? DNR status @ -no What co-morbidities impacted this encounter? (DM, HTN, Smoking, COPD, CAD, Cancer, CVA, ARF, Chemo, Hep., AIDS, mental health diagnosis, sleep apnea, morbid obesity)? @ -none Was patient admitted / discharged? Hospital course, mention meds given and route, prescriptions, significant lab abnormalities, going to OR and other pertinent info. @ - 88 female will be admitted after fall with right hip fracture. Patient will admit for orthopedic evaluation and treatment, patient does suffer from severe dementia Admitted for fall with hip fracture Undiagnosed new problem with uncertain prognosis? @ -no Drug Therapy requiring intensive monitoring for toxicity (Heparin, Nitro, Insulin, Cardizem)? @ -no Were any procedures done? @ -no Diagnosis/symptom? @ - Acute, or Chronic, or Acute on Chronic? @ -Acute Uncomplicated (without systemic symptoms) or Complicated (systemic symptoms)? @ -Complicated Side effects of treatment? @ -no Exacerbation, Progression, or Severe Exacerbation? @ -exacerbation Poses a threat to life or bodily function? How? (Chest pain, [place], [place], pneumonia, PE, COPD, DKA, ARF, appy, cholecystitis, CVA, Diverticulitis, Homicidal, Suicidal, threat to staff... and all critical care pts) @ -yes extremes of age - Consultations Consultation #1: Spoke with orthopedics who agreed to admit this patient Medical Decision Making - Medical Decision Making 88 female will be admitted after fall with right hip fracture. Patient will admit for orthopedic evaluation and treatment, patient does suffer from severe dementia - Lab Data Result diagrams: 04/18/24 14:27 04/18/24 03:16 Lab Results 04/16/24 04/16/24 04/16/24 Range/Units 02:38 02:38 02:38 WBC 7.2 (3.8-10.6) k/uL RBC 3.87 (3.80-5.40) m/uL Hgb 12.2 (11.4-16.0) gm/dL Hct 36.1 (34.0-46.0) % MCV 93.2 (80.0-100.0) fL MCH 31.6 (25.0-35.0) pg MCHC 33.9 (31.0-37.0) g/dL RDW 13.8 (11.5-15.5) % Plt Count 262 (150-450) k/uL MPV 8.1 Neutrophils % 64 % Lymphocytes % 24 % Monocytes % 9 % Eosinophils % 1 % Basophils % 1 % Neutrophils # 4.6 (1.3-7.7) k/uL Lymphocytes # 1.7 (1.0-4.8) k/uL Monocytes # 0.6 (0-1.0) k/uL Eosinophils # 0.1 (0-0.7) k/uL Basophils # 0.0 (0-0.2) k/uL PT 11.1 (10.0-12.5) sec INR 1.0 (<1.2) APTT 31.3 H (22.0-30.0) sec Sodium 134 L (137-145) mmol/L Potassium 3.8 (3.5-5.1) mmol/L Chloride 106 (98-107) mmol/L Carbon Dioxide 26 (22-30) mmol/L Anion Gap 2 mmol/L BUN 13 (7-17) mg/dL Creatinine 0.54 (0.52-1.04) mg/dL Est GFR (CKD-EPI)AfAm >90 (>60 ml/min/1.73 sqM) Est GFR (CKD-EPI)NonAf 85 (>60 ml/min/1.73 sqM) Glucose 126 H (74-99) mg/dL Calcium 8.9 (8.4-10.2) mg/dL Phosphorus 3.6 (2.5-4.5) mg/dL Magnesium 1.8 (1.6-2.3) mg/dL Total Bilirubin 0.4 (0.2-1.3) mg/dL AST 21 (14-36) U/L ALT 16 (4-34) U/L Alkaline Phosphatase 108 (38-126) U/L Troponin I (0.000-0.034) ng/mL NT-Pro-B Natriuret Pep 227 pg/mL Total Protein 5.2 L (6.3-8.2) g/dL Albumin 2.9 L (3.5-5.0) g/dL 04/16/24 Range/Units 02:38 WBC (3.8-10.6) k/uL RBC (3.80-5.40) m/uL Hgb (11.4-16.0) gm/dL Hct (34.0-46.0) % MCV (80.0-100.0) fL MCH (25.0-35.0) pg MCHC (31.0-37.0) g/dL RDW (11.5-15.5) % Plt Count (150-450) k/uL MPV Neutrophils % % Lymphocytes % % Monocytes % % Eosinophils % % Basophils % % Neutrophils # (1.3-7.7) k/uL Lymphocytes # (1.0-4.8) k/uL Monocytes # (0-1.0) k/uL Eosinophils # (0-0.7) k/uL Basophils # (0-0.2) k/uL PT (10.0-12.5) sec INR (<1.2) APTT (22.0-30.0) sec Sodium (137-145) mmol/L Potassium (3.5-5.1) mmol/L Chloride (98-107) mmol/L Carbon Dioxide (22-30) mmol/L Anion Gap mmol/L BUN (7-17) mg/dL Creatinine (0.52-1.04) mg/dL Est GFR (CKD-EPI)AfAm (>60 ml/min/1.73 sqM) Est GFR (CKD-EPI)NonAf (>60 ml/min/1.73 sqM) Glucose (74-99) mg/dL Calcium (8.4-10.2) mg/dL Phosphorus (2.5-4.5) mg/dL Magnesium (1.6-2.3) mg/dL Total Bilirubin (0.2-1.3) mg/dL AST (14-36) U/L ALT (4-34) U/L Alkaline Phosphatase (38-126) U/L Troponin I <0.012 (0.000-0.034) ng/mL NT-Pro-B Natriuret Pep pg/mL Total Protein (6.3-8.2) g/dL Albumin (3.5-5.0) g/dL - EKG Data -: EKG Interpreted by Me (EKG is sinus 79 DC 168 QRS 133 QTc 430) - Radiology Data Radiology results: report reviewed (CT brain C-spine chest x-ray negative for acute disease x-ray hip positive fracture), image reviewed Disposition Clinical Impression: Fall, Closed right hip fracture Disposition: ADMITTED IP TO THIS HOSP Condition: Fair Is patient prescribed a controlled substance at d/c from ED?: No Time of Disposition: 03:00
[2024-04-16] MEDS: SODIUM CHLORIDE 0.9% 500 ML 500 ML IV STA (02:41)
[2024-04-16] MEDS: MORPHINE SULFATE 4 MG/ML SYRINGE IV STA (02:42)
--- NOTE | 2024-04-16 02:42 | CT ---
EXAM: CT Head Without Intravenous Contrast CLINICAL HISTORY: ITS.REASON CT Reason: fall TECHNIQUE: Axial computed tomography images of the head/brain without intravenous contrast. CTDI is 56 mGy and DLP is 1401 mGy-cm. This CT exam was performed using one or more of the following dose reduction techniques: automated exposure control, adjustment of the mA and/or kV according to patient size, and/or use of iterative reconstruction technique. COMPARISON: 03/12/2024. FINDINGS: Brain: No hemorrhage. Similar 2 cm right frontal convexity calcified meningioma with vasogenic edema. Ventricles: No hydrocephalus. Bones/joints: Unremarkable. Soft tissues: Unremarkable. Sinuses: No air fluid level. Mastoid air cells: Clear. IMPRESSION: 1. No acute findings. Redemonstration of right frontal convexity meningioma. EXAM: CT Cervical Spine Without Intravenous Contrast CLINICAL HISTORY: ITS.REASON CT Reason: fall TECHNIQUE: Axial computed tomography images of the cervical spine without intravenous contrast. CTDI is 10 mGy and DLP is 322 mGy-cm. This CT exam was performed using one or more of the following dose reduction techniques: automated exposure control, adjustment of the mA and/or kV according to patient size, and/or use of iterative reconstruction technique. COMPARISON: 03/12/2024. FINDINGS: Vertebrae: No acute fracture. Discs/spinal canal/neural foramina: degenerative changes. Soft tissues: No prevertebral swelling. IMPRESSION: No acute fracture or subluxation.
--- NOTE | 2024-04-16 02:51 | XR ---
EXAM: XR Pelvis Complete, 3 or More Views CLINICAL HISTORY: ITS.REASON XR Reason: fall TECHNIQUE: Frontal and lateral or oblique views of the pelvis. COMPARISON: No relevant prior studies available. IMPRESSION: Right femoral intertrochanteric fracture with significantly displaced bone fragment medially.
[2024-04-16] MEDS ORDERED: ONDANSETRON 4 MG/2 ML VIAL IVP PRN (02:53)
[2024-04-16] MEDS ORDERED: NALOXONE 0.4 MG/ML 1 ML VIAL IV PRN ×2 (02:53→14:20)
--- NOTE | 2024-04-16 02:57 | XR ---
EXAM: XR Chest, 1 View CLINICAL HISTORY: ITS.REASON XR Reason: fall TECHNIQUE: Frontal view of the chest. COMPARISON: No relevant prior studies available. FINDINGS: Lungs: No consolidation or mass. Pleural space: No acute findings. Heart: Mild cardiomegaly. Bones/joints: No acute findings. IMPRESSION: No acute cardiopulmonary process.
[2024-04-16 02:59] LABS: ALT 16 U/L (4-34); AST 21 U/L (14-36); African American GFR (CKD) >90 (>60 ml/min/1.73 sqM); Albumin 2.9 g/dL (3.5-5.0); Alkaline Phosphatase 108 U/L (38-126); Anion Gap 2 mmol/L; Blood Urea Nitrogen 13 mg/dL (7-17); Calcium 8.9 mg/dL (8.4-10.2); Carbon Dioxide 26 mmol/L (22-30); Chloride 106 mmol/L (98-107); Glucose 126 mg/dL (74-99); Magnesium 1.8 mg/dL (1.6-2.3); Non-African American GFR(CKD) 85 (>60 ml/min/1.73 sqM); Phosphorus 3.6 mg/dL (2.5-4.5); Potassium 3.8 mmol/L (3.5-5.1); Sodium 134 mmol/L (137-145); Total Bilirubin 0.4 mg/dL (0.2-1.3); Total Protein 5.2 g/dL (6.3-8.2)
[2024-04-16 03:08] LABS: NT-Pro-B-Type Natriuretic Pept 227 pg/mL
[2024-04-16] MEDS: SODIUM CHLORIDE 0.9% 1,000 ML IV STA (03:24)
[2024-04-16 03:25] LABS: Basophils % (A) 1 %; Eosinophils # (A) 0.1 k/uL (0-0.7); Eosinophils % (A) 1 %; HCT 36.1 % (34.0-46.0); HGB 12.2 gm/dL (11.4-16.0); Lymphocytes # (A) 1.7 k/uL (1.0-4.8); Lymphocytes % (A) 24 %; MCH 31.6 pg (25.0-35.0); MCHC 33.9 g/dL (31.0-37.0); MCV 93.2 fL (80.0-100.0); Mean Platelet Volume 8.1; Monocytes # (A) 0.6 k/uL (0-1.0); Monocytes % (A) 9 %; Neutrophils # (A) 4.6 k/uL (1.3-7.7); Neutrophils % (A) 64 %; Platelet Count 262 k/uL (150-450); RBC 3.87 m/uL (3.80-5.40); RDW 13.8 % (11.5-15.5); WBC 7.2 k/uL (3.8-10.6)
[2024-04-16 03:45] LABS: Partial Thromboplastin Time 31.3 sec (22.0-30.0); Prothrombin Time 11.1 sec (10.0-12.5)
--- NOTE | 2024-04-16 04:55 | XR ---
EXAM: XR Right Femur, 2 Views CLINICAL HISTORY: ITS.REASON XR Reason: fracture TECHNIQUE: Frontal and lateral views of the right femur. COMPARISON: No relevant prior studies available. FINDINGS: Bones/joints: Comminuted intratrochanteric fracture of the proximal right femur with displacement of the lesser trochanter. Previous right knee replacement. No dislocation. Soft tissues: Unremarkable. IMPRESSION: Comminuted intratrochanteric fracture of the proximal right femur with displacement of the lesser trochanter.
--- NOTE | 2024-04-16 10:31 | P.HPOR ---
History of Present Illness H&P Date: 04/16/24 Chief Complaint: Right hip pain. This is an 88-year-old female admitted through the emergency department earlier this morning after falling and sustaining injury to her right hip. The patient resides at [facility] in the memory care unit with significant history of dementia. The patient's family is present at bedside and provides the history. The patient reportedly had a seizure approximately 1 month ago but did not sustain any serious injury at that time. She was noted to have a meningioma on CT scan of the brain. She reportedly ambulates with a walker with minimal assistance prior to her fall. She was evaluated in the emergency department and found to have a right intertrochanteric hip fracture. She is admitted to our service for surgical intervention and care. Internal medicine is on consult. Past Medical History Past Medical History: Cancer, Hyperlipidemia Additional Past Medical History / Comment(s): hx ulcer, skin cancer R thigh History of Any Multi-Drug Resistant Organisms: None Reported Past Surgical History: Adenoidectomy, Back Surgery, Bowel Resection, Hernia Repair, Hysterectomy, Joint Replacement, Tonsillectomy Additional Past Surgical History / Comment(s): R knee replacement, back -L4 and L5, bilat. cataracts, colonoscopy. Past Anesthesia/Blood Transfusion Reactions: No Reported Reaction Additional Past Anesthesia/Blood Transfusion Reaction / Comment(s): . Additional Psychological History / Comment(s): dementia. daughter says in the last few months it has recently been getting worse. Smoking Status: Unknown if ever smoked Past Alcohol Use History: None Reported Additional Past Alcohol Use History / Comment(s): Pt was a occasional smoker-1 pack per week. She quit 40 yrs ago. smoked for about 3-4 yrs Past Drug Use History: None Reported - Past Family History Sister(s) Family Medical History: Cancer Mother Family Medical History: Cancer Additional Family Medical History / Comment(s): brain Father Family Medical History: Renal Disease Additional Family Medical History / Comment(s): Father of kidney disease at age 80 yrs. Brother(s) Family Medical History: Diabetes Mellitus Daughter(s) Family Medical History: No Reported History (Patient has 3 daughters no major medical problems) Son(s) Family Medical History: No Reported History Medications and Allergies Home Medications Medication Instructions Recorded Confirmed Type ALPRAZolam [Xanax] 0.25 mg PO Q12H PRN 10/13/24 10/13/24 History Acetaminophen Tab [Tylenol Tab] 500 mg PO TID 04/16/24 04/16/24 History Aspirin 81 mg PO DAILY 04/16/24 04/16/24 History HYDROcodone/APAP 7.5-325MG [[place] 1 tab PO Q4H 04/16/24 04/16/24 History 7.5-325] Losartan [Cozaar] 25 mg PO DAILY 04/16/24 04/16/24 History Melatonin 3 mg PO HS 04/16/24 04/16/24 History levETIRAcetam [Keppra] 500 mg PO Q12H 04/16/24 04/16/24 History methocarbamoL [Robaxin] 500 mg PO Q6H 04/16/24 04/16/24 History Allergies Allergy/AdvReac Type Severity Reaction Status Date / Time erythromycin base Allergy Unknown Verified 04/16/24 10:15 peanut [Peanut Butter] AdvReac stomach Verified 04/16/24 10:15 ache Physical Examination This is a pleasant 88-year-old female in no acute distress. She is resting soundly but does awaken during the exam. She is confused and unable to provide history. Exam of the head neck revealed no obvious deformity. No tenderness with palpation about the head or cervical spine. Exam of the upper extremities is unremarkable. No areas of swelling or defo rmity noted. Exam of the lower extremities reveals shortening and external rotation to the right lower extremity. Pedal pulses are +2/4 bilaterally. Neurovascular status to the lower extremities is intact. Results X-rays of the pelvis, right hip and femur reveal a comminuted intertrochanteric fracture with complete avulsion of the lesser trochanter in the right hip. There is presence of total knee components in good position and alignment with no evidence of loosening. CT scan of the brain and cervical spine reveal a meningioma which was noted prior on CT 1 month ago and appears stable. No fractures noted. - Labs Labs: Abnormal Lab Results - Last 24 Hours (Table) 04/16/24 04/16/24 Range/Units 02:38 02:38 APTT 31.3 H (22.0-30.0) sec Sodium 134 L (137-145) mmol/L Glucose 126 H (74-99) mg/dL Total Protein 5.2 L (6.3-8.2) g/dL Albumin 2.9 L (3.5-5.0) g/dL H & H 04/16/24 Range/Units 02:38 Hgb 12.2 (11.4-16.0) gm/dL Hct 36.1 (34.0-46.0) % Coagulation 04/16/24 Range/Units 02:38 INR 1.0 (<1.2) Result Diagrams: 04/16/24 02:38 04/16/24 02:38 Assessment and Plan (1) Closed right hip fracture Current Visit: Yes Status: Acute Code(s): S72.001A - FRACTURE OF UNSP PART OF NECK OF RIGHT FEMUR, INIT SNOMED Code(s): 959993883 (2) Fall Current Visit: Yes Status: Acute Code(s): W19.XXXA - UNSPECIFIED FALL, INITIAL ENCOUNTER SNOMED Code(s): 3682567 Plan: The clinical and x-ray findings are discussed with the patient and her family. Treatment options are discussed including surgical intervention with closed reduction and insertion of intertrochanteric nail. It is recommended she undergo intertrochanteric nailing for stabilization of the fracture and pain management. The procedure was discussed in detail including the possible risks and outcomes of the surgery. After discussion and consideration the family elects to proceed with the procedure. We are awaiting presurgical evaluation with internal medicine. We are tentatively planning on surgery today. She will likely be able to return to [facility] after 2 to 3 days of postoperative care in the hospital. Patient was independently seen and examined by myself Javon Gardner MD and I agree with the above history and plan for this patient, pending medical clearance will plan for OR today for Right IMN.
[2024-04-16] MEDS: MORPHINE SULFATE 4 MG/ML SYRINGE IV PRN (11:39)
[2024-04-16] MEDS ORDERED: fentaNYL (PF) 50 MCG/ML 2 ML AMP ONE (12:35)
[2024-04-16] MEDS ORDERED: GLYCOPYRROLATE 0.2 MG/ML 2 ML VIAL ONE (12:35)
[2024-04-16] MEDS ORDERED: PHENYLEPHRINE 10 MG/ML VIAL ONE (12:35)
[2024-04-16] MEDS ORDERED: NEOSTIGMINE 1 MG/ML 10 ML VIAL ONE (12:35)
[2024-04-16] MEDS ORDERED: PROPOFOL 10 MG/ML 20 ML VIAL IV ONE (12:35)
[2024-04-16] MEDS: LACTATED RINGERS 1,000 ML IV ONE (12:35)
[2024-04-16] MEDS ORDERED: SUCCINYLCHOLINE CHLORIDE 200 MG/10 ML VIAL IV ONE (12:35)
[2024-04-16] MEDS ORDERED: LIDOCAINE 1% INJ 10MG/ML (20 ML MDV) ONE (12:35)
[2024-04-16] MEDS ORDERED: ROCURONIUM 10 MG/ML (5 ML VIAL) IV ONE (12:35)
[2024-04-16] MEDS: LIDOCAINE 2%-EPI 1:100,000 20 ML VIAL SQ ONE (12:35)
[2024-04-16] MEDS: ceFAZolin 1,000 MG VIAL IVPB ONE (12:35)
--- NOTE | 2024-04-16 13:09 | P.CONS ---
History of Present Illness - Reason for Consult Consult date: 04/16/24 Medical management - History of Present Illness History of present illness; patient is 88-year-old lady with past medical hi story significant for hyperlipidemia, dementia who is currently resident of a assisted was brought to the ER after a fall. Patient is currently a resident of a memory care unit at [facility], normally uses a walker to walk but was noted to be not using walker during this episode and she fell on her right side. Patient did not lose her consciousness. There was no complaint of any lightheaded dizziness prior to the episode. Because of this episode, patient brought to the ER Initial lab work done in the ER showed WBC 1.2, hemoglobin 12.2, platelet count 262, sodium 134, potassium 3.8, chloride 106, carbon is a 26, BUN 13, creatinine 0.54, glucose 126, calcium 8.9, phosphorus 3.6, magnesium 1.8 EKG done in the ER showed heart rate of 79, no ST segment elevation or depression seen, no T-wave inversions seen. Chest x-ray done in the ER showed no acute pulmonary process X-ray hip done showed right femoral intertrochanteric fracture with slightly displaced bone fragment medially CT head done showed no acute intracranial process, showed redemonstration of right frontal convexity meningioma CT cervical spine done showed no acute fractures Patient admitted to internal medicine service REVIEW OF SYSTEMS: CONSTITUTIONAL: No fever, no malaise, no fatigue. HEENT: No recent visual problems or hearing problems. Denied any sore throat. CARDIOVASCULAR: No chest pain, orthopnea, PND, no palpitations, no syncope. PULMONARY: No shortness of breath, no cough, no hemoptysis. GASTROINTESTINAL: No diarrhea, no nausea, no vomiting, no abdominal pain. NEUROLOGICAL: No headaches, no weakness, no numbness. HEMATOLOGICAL: Denies any bleeding or petechiae. GENITOURINARY: Denies any burning micturition, frequency, or urgency. MUSCULOSKELETAL/RHEUMATOLOGICAL: Right hip pain ENDOCRINE: Denies any polyuria or polydipsia. The rest of the 14-point review of systems is negative. PHYSICAL EXAMINATION: GENERAL: The patient is alert and oriented x1, not in any acute distress. History of dementia HEENT: Pupils are round and equally reacting to light. EOMI. No scleral icterus. No conjunctival pallor. Normocephalic, atraumatic. No pharyngeal erythema. No thyromegaly. CARDIOVASCULAR: S1 and S2 present. No murmurs, rubs, or gallops. PULMONARY: Chest is clear to auscultation, no wheezing or crackles. ABDOMEN: Soft, nontender, nondistended, normoactive bowel sounds. No palpable organomegaly. MUSCULOSKELETAL: Right hip tenderness EXTREMITIES: No cyanosis, clubbing, or pedal edema. NEUROLOGICAL: Gross neurological examination did not reveal any focal deficits. SKIN: No rashes. Assessment and plan Fall Right hip fracture History of dementia History of seizures Hyperlipidemia Monitor vital signs Continue pain management per orthopedics Continue DVT prophylaxis per orthopedics Resume home meds Orthopedic following, planning surgery today Patient is medically stable to undergo surgery with mild to moderate risk of postoperative complication Labs and medication were reviewed.. Continue same treatment. Continue with symptomatic treatment. Resume home medication. Monitor labs and vitals. DVT and GI prophylaxis. Further recommendations as per clinical course of the patient Dictation was produced using [employer] dictation software. please excuse any grammatical, word or spelling errors. Past Medical History Past Medical History: Cancer, Hyperlipidemia Additional Past Medical History / Comment(s): hx ulcer, skin cancer R thigh History of Any Multi-Drug Resistant Organisms: None Reported Past Surgical History: Adenoidectomy, Back Surgery, Bowel Resection, Hernia Repair, Hysterectomy, Joint Replacement, Tonsillectomy Additional Past Surgical History / Comment(s): R knee replacement, back -L4 and L5, bilat. cataracts, colonoscopy. Past Anesthesia/Blood Transfusion Reactions: No Reported Reaction Additional Past Anesthesia/Blood Transfusion Reaction / Comm: . Additional Psychological History / Comment(s): dementia. daughter says in the last few months it has recently been getting worse. Smoking Status: Unknown if ever smoked Past Alcohol Use History: None Reported Additional Past Alcohol Use History / Comment(s): Pt was a occasional smoker-1 pack per week. She quit 40 yrs ago. smoked for about 3-4 yrs Past Drug Use History: None Reported - Past Family History Sister(s) Family Medical History: Cancer Mother Family Medical History: Cancer Additional Family Medical History / Comment(s): brain Father Family Medical History: Renal Disease Additional Family Medical History / Comment(s): Father of kidney disease at age 80 yrs. Brother(s) Family Medical History: Diabetes Mellitus Daughter(s) Family Medical History: No Reported History (Patient has 3 daughters no major medical problems) Son(s) Family Medical History: No Reported History Medications and Allergies Home Medications Medication Instructions Recorded Confirmed Type ALPRAZolam [Xanax] 0.25 mg PO Q12H PRN 04/16/24 04/16/24 History Acetaminophen Tab [Tylenol Tab] 500 mg PO TID 04/16/24 04/16/24 History Aspirin 81 mg PO DAILY 04/16/24 04/16/24 History HYDROcodone/APAP 7.5-325MG [[place] 1 tab PO Q4H 04/16/24 04/16/24 History 7.5-325] Losartan [Cozaar] 25 mg PO DAILY 04/16/24 04/16/24 History Melatonin 3 mg PO HS 04/16/24 04/16/24 History levETIRAcetam [Keppra] 500 mg PO Q12H 04/16/24 04/16/24 History methocarbamoL [Robaxin] 500 mg PO Q6H 04/16/24 04/16/24 History Allergies Allergy/AdvReac Type Severity Reaction Status Date / Time erythromycin base Allergy Unknown Verified 04/16/24 10:15 peanut [Peanut Butter] AdvReac stomach Verified 04/16/24 10:15 ache Physical Exam Vitals: Vital Signs Temp Pulse Pulse Resp BP BP Pulse Ox 04/16/24 08:02 97.9 F 75 17 131/71 96 04/16/24 04:58 98.0 F 77 19 138/85 100 04/16/24 04:40 97.8 F 80 18 104/70 96 04/16/24 01:11 98.4 F 83 16 107/81 96 Intake and Output 04/15/24 04/16/24 04/16/24 22:59 06:59 14:59 Other: Weight 99.79 kg Results CBC & Chem 7: 04/16/24 02:38 04/16/24 02:38 Labs: Abnormal Lab Results - Last 24 Hours (Table) 04/16/24 04/16/24 Range/Units 02:38 02:38 APTT 31.3 H (22.0-30.0) sec Sodium 134 L (137-145) mmol/L Glucose 126 H (74-99) mg/dL Total Protein 5.2 L (6.3-8.2) g/dL Albumin 2.9 L (3.5-5.0) g/dL
[2024-04-16] MEDS: HYDROmorphone 0.5 MG/0.5 ML SYRINGE IVP PRN (14:19)
[2024-04-16] MEDS ORDERED: MAGNESIUM HYDROXIDE 2,400 MG/30 ML CUP PO PRN (14:20)
[2024-04-16] MEDS ORDERED: HYDROmorphone 0.5 MG/0.5 ML SYRINGE IVP PRN ×2 (14:20)
--- NOTE | 2024-04-16 14:20 | P.OP ---
Date of Procedure: 04/16/24 Preoperative Diagnosis: right hip intertrochanteric fracture Postoperative Diagnosis: same Procedure(s) Performed: Open reduction and Intramedullary fixation of right hip fracture Implants: Synthes TFNA femoral nail Anesthesia: KENZIE Surgeon: Javon Gardner Estimated Blood Loss (ml): 50 Pathology: none sent Condition: stable Disposition: PACU Indications for Procedure: Unstable Hip fracture, allow patient post operative weight bearing Operative Findings: Unstable displaced Intertrochanteric right hip fracture Description of Procedure: The patient was brought to the operating room, and after induction of general anesthesia the patient was placed supine on the Chanelle table. The right hip fracture was reduced with closed means with a combination of traction and internal rotation appropriate reduction of the fracture was confirmed with fluoroscopy. The [right] hip was then prepped and draped in a normal fashion. The appropriate starting point on the greater trochanter was initially identifie d with fluoroscopy a 3.2 mm guidepin was utilized to get the initial starting point for the opening reamer the opening reamer was then placed over the guidepin to open up the proximal aspect of the femur 12.5 mm reamer was then over a guidewire which was exchanged for the initial guidepin in order to adequately open the distal aspect of the canal to allow for ease of nail insertion the Synthes short femoral nail was then gently inserted into a proper depth for the femoral neck screw and additional pin was placed through the aiming jig in order to properly estimate the trajectory of the head screw on the lateral image. Position was confirmed on AP and lateral films the guidepin for the head screw was then placed in appropriate position again confirmed with imaging screw was then predrilled drilled and an appropriate sized screw length selected and placed manual compression was then performed to further reduce the fracture the head screw was then locked in place attention was then placed to the distal interlocking screw the triple trocar was inserted and appropriate position confirmed with imaging the cortex was drilled and an appropriate size screw was placed and imaging confirmed once again on fluoroscopy guide was removed and final images demonstrated appropriate fracture reduction and position of the implants the wounds were copiously irrigated with normal saline and the wounds closed with absorbable sutures sterile dressings were then applied tolerated the procedure well and was transported to the PACU in stable condition Postop Patient will be weightbearing as tolerated Aspirin 81 mg twice daily for DVT prophylaxis ice to the surgical site to help with pain and swelling PT and OT will be ordered for mobilization beginning postop day 1 Patient will be seen in our office 2 weeks postoperatively for wound evaluation and updated x-rays
[2024-04-16] MEDS: IV FLUID CONTINUATION 1,000 ML IV ONE (15:10)
[2024-04-16] MEDS: LACTATED RINGERS 1,000 ML IV SCH (15:20)
[2024-04-16 15:57] LABS: Basophils % (A) 0 %; Eosinophils % (A) 0 %; HCT 32.2 % (34.0-46.0); HGB 10.3 gm/dL (11.4-16.0); Hypochromasia Slight; Lymphocytes # (A) 1.2 k/uL (1.0-4.8); Lymphocytes % (A) 13 %; MCH 31.1 pg (25.0-35.0); MCV 97.3 fL (80.0-100.0); Mean Platelet Volume 7.5; Monocytes # (A) 0.6 k/uL (0-1.0); Monocytes % (A) 7 %; Neutrophils # (A) 7.4 k/uL (1.3-7.7); Neutrophils % (A) 78 %; Platelet Count 229 k/uL (150-450); RBC 3.31 m/uL (3.80-5.40); RDW 13.6 % (11.5-15.5); WBC 9.5 k/uL (3.8-10.6)
[2024-04-16 16:56] LABS: Appearance,Urine Clear (Clear); Bacteria,Urine Rare /hpf; Bilirubin,Urine Negative (Negative); Blood,Urine Small (Negative); Color,Urine Yellow; Glucose,Urine (UA) Negative (Negative); Hyaline Casts,Urine 3 /lpf (0-2); Ketones,Urine 1+ (Negative); Leukocyte Esterase,Urine Negative (Negative); Mucus,Urine Occasional /hpf; Nitrite,Urine Negative (Negative); PH, Urine 5.5 (5.0-8.0); Protein,Urine 1+ (Negative); RBC,Urine 34 /hpf (0-5); Squamous Epithelial Cell,Urine 1 /hpf (0-4); Urobilinogen,Urine <2.0 mg/dL (<2.0); WBC,Urine 7 /hpf (0-5)
[2024-04-16] MEDS: levETIRAcetam 500 MG TAB PO SCH (20:54)
[2024-04-16] MEDS: ASPIRIN 81 MG PO SCH (20:54)
[2024-04-16] MEDS: ALPRAZolam 0.25 MG TAB PO PRN (20:54)
[2024-04-16] MEDS: SENNOSIDES-DOCUSATE SODIUM 1 EACH TAB PO SCH (20:54)
[2024-04-16] MEDS: HYDROcodone/APAP 5-325MG 1 EACH TAB PO PRN (21:57)
[2024-04-17] MEDS: HYDROmorphone 0.5 MG/0.5 ML SYRINGE IVP PRN (06:28)
--- NOTE | 2024-04-17 07:32 | FL ---
EXAMINATION TYPE: FL guidance operating room, XR Hip Complete RT DATE OF EXAM: 04/16/2024 2:05 PM COMPARISON: Pre Operative Images if available both CT/MRI or plain film CLINICAL INDICATION: Female, 88 years old with history of IT Nail-Rt Hip; TECHNIQUE: FL guidance operating room, XR Hip Complete RT, multiple fluoroscopic images provided for procedure. Total fluoroscopy time: 59.5 seconds Total submitted images to PACS: 3 DAP: [id number] mGym2 Gycm2 uGym2 cGycm2 or equivalent. FINDINGS: Fluoroscopic images during internal fixation/arthroplasty demonstrate fixation hardware in appropriat e position. Hardware appears intact. No immediate complication identified. IMPRESSION: 1. No evidence for intraoperative complication. 2. Please see the operative/procedural note for further details. [facility], , 04/17/2024 7:30 AM
--- NOTE | 2024-04-17 08:30 | P.PN ---
Subjective Progress Note Date: 04/17/24 Principal diagnosis: Intertrochanteric fracture right hip. Status post closed reduction with insertion of intertrochanteric nail right hip. Dementia. This is an 88-year-old female admitted through the emergency department earlier this morning after falling and sustaining injury to her right hip. The patient resides at [facility] in the memory care unit with significant history of dementia. The patient's family is present at bedside and provides the history. The patient reportedly had a seizure approximately 1 month ago but did not sustain any serious injury at that time. She was noted to have a meningioma on CT scan of the brain. She reportedly ambulates with a walker with minimal assistance prior to her fall. She was evaluated in the emergency department and found to have a right intertrochanteric hip fracture. She is admitted to our service for surgical intervention and care. Internal medicine is on consult. 04/17/2024: Today is postop day #1 status post closed reduction with insertion of intertrochanteric nail of the right hip. The patient is stable from an orthopedic standpoint. She continues to have significant confusion. There are no new complaints or concerns today. Vital signs are stable. Objective - Vital Signs Vital signs: Vital Signs Temp 97.9 F 04/17/24 01:38 Pulse 82 04/17/24 06:50 Resp 17 04/17/24 06:50 BP 118/66 04/17/24 06:50 Pulse Ox 95 04/17/24 06:50 FiO2 Intake & Output 04/16/24 04/17/24 04/17/24 18:59 06:59 18:59 Intake Total 1300 Output Total 900 125 Balance 400 -125 Intake: IV 1300 Output: Urine 850 125 Estimated Blood Loss 50 Other: Voiding Method External Catheter Indwelling Catheter - Exam This is a pleasant 88-year-old female in no acute distress. She is alert with significant confusion. Dressings are clean, dry and intact. She is moving her leg freely in bed. There is some soft tissue swelling about the thigh. Neurov ascular status to the lower extremity is grossly intact. - Labs CBC & Chem 7: 04/16/24 15:46 04/16/24 02:38 Labs: Abnormal Lab Results - Last 24 Hours (Table) 04/16/24 04/16/24 Range/Units 15:46 16:30 RBC 3.31 L (3.80-5.40) m/uL Hgb 10.3 L (11.4-16.0) gm/dL Hct 32.2 L (34.0-46.0) % Urine Protein 1+ H (Negative) Urine Ketones 1+ H (Negative) Urine Blood Small H (Negative) Urine RBC 34 H (0-5) /hpf Urine WBC 7 H (0-5) /hpf Urine Bacteria Rare H (None) /hpf Hyaline Casts 3 H (0-2) /lpf Urine Mucus Occasional H (None) /hpf Assessment and Plan (1) Closed right hip fracture Current Visit: Yes Status: Acute Code(s): S72.001A - FRACTURE OF UNSP PART OF NECK OF RIGHT FEMUR, INIT SNOMED Code(s): 372251234 (2) Fall Current Visit: Yes Status: Acute Code(s): W19.XXXA - UNSPECIFIED FALL, INITIAL ENCOUNTER SNOMED Code(s): 7652673 Plan: The clinical findings are discussed with the nursing staff. Begin physical therapy today. [facility].
--- NOTE | 2024-04-18 01:51 | P.PN ---
Subjective Progress Note Date: 04/17/24 - Reason for Consult Consult date: 04/16/24 Medical management - History of Present Illness History of present illness; patient is 88-year-old lady with past medical history significant for hyperlipidemia, dementia who is currently resident of a correction was brought to the ER after a fall. Patient is currently a resident of a memory care unit at [facility], normally uses a walker to walk but was noted to be not using walker during this episode and she fell on her right side. Patient did not lose her consciousness. There was no complaint of any lightheaded dizziness prior to the episode. Because of this episode, patient brought to the ER Initial lab work done in the ER showed WBC 1.2, hemoglobin 12.2, platelet count 262, sodium 134, potassium 3.8, chloride 106, carbon is a 26, BUN 13, creatinine 0.54, glucose 126, calcium 8.9, phosphorus 3.6, magnesium 1.8 EKG done in the ER showed heart rate of 79, no ST segment elevation or depression seen, no T-wave inversions seen. Chest x-ray done in the ER showed no acute pulmonary process X-ray hip done showed right femoral intertrochanteric fracture with slightly displaced bone fragment medially CT head done showed no acute intracranial process, showed redemonstration of r ight frontal convexity meningioma CT cervical spine done showed no acute fractures Patient admitted to internal medicine service 04/17/2024 Patient is seen and evaluated in follow-up status post right hip closed reduction with nailing. Patient is lying flat currently with daughters at the bedside reporting she is weak and continues with pain and not eating much. Patient maintained on IV hydration currently on room air with no reports of chest pain or shortness of breath. Per family she has been at [facility] and will be returning there for continued PT/OT therapy. Will follow-up on repeat labs and continue to monitor closely. Review of systems: Constitutional: No reports of fatigue, fever, or chills Cardiovascular: No reports of chest pain or palpitations Respiratory: No reports of shortness of breath or cough GI: No reports of nausea, vomiting, or diarrhea, reports not much of an appetite : No reports of dysuria or retention Neurovascular: reports of weakness and right hip pain All medications have been reviewed PHYSICAL EXAMINATION: GENERAL: The patient is alert and oriented x1, awake. Elderly appearing, ill- appearing, obese history of dementia HEENT: Pupils are round and equally reacting to light. EOMI. No scleral icterus. No conjunctival pallor. Normocephalic, atraumatic. No pharyngeal erythema. No thyromegaly. CARDIOVASCULAR: S1 and S2 muffled PULMONARY: Diminished breath sounds bilaterally otherwise chest is clear to auscultation, no wheezing or crackles. ABDOMEN: Soft, nontender, nondistended, normoactive bowel sounds. No palpable organomegaly. MUSCULOSKELETAL: Right hip tenderness, surgical dressing site is dry and intact EXTREMITIES: No cyanosis, clubbing, or pedal edema. NEUROLOGICAL: Gross neurological examination did not reveal any focal deficits. Diffusely weak SKIN: No rashes. Pale Assessment: Fall with right hip fracture, status post closed reduction and nailing History of dementia History of seizures Hyperlipidemia Morbid obesity with a BMI of 43.0 GI prophylaxis DVT prophylaxis No code Plan: Patient is status postsurgical procedure for the right hip having some pain recommend cautiously using IV narcotics along with narcotics due to age and history of dementia Continue to reorient patient and family members present at the bedside, recommending staying at bedside Encouraged to increase activity as tolerated with PT/OT therapy evaluation. Plan will be to return to [facility] and will discuss with case management regarding discharge planning Patient maintained on IV fluids although is eating, would recommend discontinuing. Monitor respiratory status. Currently on room air and denies any shortness of breath Will follow-up with repeat labs in the a.m. Risks versus benefits were explained to the patient and family prior to surgery as patient was considered moderate risk and willing to proceed for patient to be able to walk again CODE STATUS is addressed and patient is no code postsurgery We will continue to follow with orthopedics during hospitalization. Thank you kindly for this consultation. The impression and plan of care has been dictated by Vilma Calix, Nurse Practitioner as directed. Dr. Ayaan MD I have performed a history and examination and MDM of this patient, discussed the same with the dictator, and agree with the dictator's assessment and plan as written ,documented as a scribe. Based on total visit time, I have performed more than 50% of the visit. Objective - Vital Signs Vital signs: Vital Signs Temp 98 F 04/17/24 20:00 Pulse 99 04/17/24 20:00 Resp 18 04/17/24 20:00 BP 98/50 04/17/24 20:00 Pulse Ox 100 04/17/24 20:00 FiO2 Intake & Output 04/17/24 04/17/24 04/18/24 06:59 18:59 06:59 Output Total 125 Balance -125 Output: Urine 125 Other: Voiding Method Indwelling Catheter Bedside Commode # Voids 1 # Bowel Movements 1 - Labs CBC & Chem 7: 04/16/24 15:46 04/16/24 02:38
[2024-04-18 09:24] LABS: BUN/Creat Ratio 18.83 Ratio (12.00-20.00); Blood Urea Nitrogen 11.3 mg/dL (9.0-27.0); Calcium 7.9 mg/dL (8.7-10.3); Carbon Dioxide 23.5 mmol/L (21.6-31.8); Chloride 103 mmol/L (96-109); Glucose 142 mg/dL (70-110); Potassium 4.1 mmol/L (3.5-5.5); Sodium 134 mmol/L (135-145)
--- NOTE | 2024-04-18 11:55 | P.PN ---
Subjective Progress Note Date: 04/18/24 This is an 88-year-old female who is status post closed reduction with insertion of intertrochanteric nail right hip. This is postoperative day #2 and patient is seen and evaluated at bedside today. Patient denies any new complaints today. Objective - Vital Signs Vital signs: Vital Signs Temp 97.9 F 04/18/24 08:00 Pulse 85 04/18/24 08:00 Resp 16 04/18/24 08:00 BP 122/73 04/18/24 08:00 Pulse Ox 99 04/18/24 08:00 FiO2 Intake & Output 04/17/24 04/18/24 04/18/24 18:59 06:59 18:59 Other: Voiding Method Bedside Commode Bedside Commode # Voids 1 2 2 # Bowel Movements 1 1 - Exam On exam patient is resting comfortably in bed in no acute distress. Patient is alert but slightly confused. Vital signs are stable. Calf is soft and nontender to palpation. Dressings are clean, dry, and intact. Patient has full foot and ankle motion without pain or difficulty. Sensation intact. Neurovascular status and circulatory status are intact. - Labs CBC & Chem 7: 04/16/24 15:46 04/18/24 03:16 Labs: Abnormal Lab Results - Last 24 Hours (Table) 04/18/24 Range/Units 03:16 Sodium 134 L (135-145) mmol/L Glucose 142 H (70-110) mg/dL Calcium 7.9 L (8.7-10.3) mg/dL Assessment and Plan Assessment: Status post closed reduction and insertion of an intertrochanteric nail right hip. (1) Closed right hip fracture Current Visit: Yes Status: Acute Code(s): S72.001A - FRACTURE OF UNSP PART OF NECK OF RIGHT FEMUR, INIT SNOMED Code(s): 480255418 (2) Fall Current Visit: Yes Status: Acute Code(s): W19.XXXA - UNSPECIFIED FALL, INITIAL ENCOUNTER SNOMED Code(s): 1509325 Plan: Continue routine postop care and pain control. Continue anticoagulation. Weightbearing as tolerated with a walker Leave dressing in place for 7 days. Appreciate input from internal medicine. Anticipate discharge to [facility] in the next 24-48 hours.
[2024-04-18 14:47] LABS: Basophils % (A) 0 %; Eosinophils % (A) 0 %; HCT 21.6 % (34.0-46.0); Lymphocytes % (A) 13 %; MCH 31.8 pg (25.0-35.0); MCHC 33.7 g/dL (31.0-37.0); MCV 94.5 fL (80.0-100.0); Mean Platelet Volume 8.3; Monocytes # (A) 0.6 k/uL (0-1.0); Monocytes % (A) 9 %; Neutrophils # (A) 5.4 k/uL (1.3-7.7); Neutrophils % (A) 76 %; Platelet Count 200 k/uL (150-450); RBC 2.29 m/uL (3.80-5.40); WBC 7.1 k/uL (3.8-10.6)
[2024-04-18 14:48] LABS: HGB 7.3 gm/dL (11.4-16.0)
--- NOTE | 2024-04-19 05:53 | P.PN ---
Subjective Progress Note Date: 04/18/24 - Reason for Consult Consult date: 04/16/24 Medical management - History of Present Illness History of present illness; patient is 88-year-old lady with past medical history significant for hyperlipidemia, dementia who is currently resident of a longterm was brought to the ER after a fall. Patient is currently a resident of a memory care unit at [facility], normally uses a walker to walk but was noted to be not using walker during this episode and she fell on her right side. Patient did not lose her consciousness. There was no complaint of any lightheaded dizziness prior to the episode. Because of this episode, patient brought to the ER Initial lab work done in the ER showed WBC 1.2, hemoglobin 12.2, platelet count 262, sodium 134, potassium 3.8, chloride 106, carbon is a 26, BUN 13, creatinine 0.54, glucose 126, calcium 8.9, phosphorus 3.6, magnesium 1.8 EKG done in the ER showed heart rate of 79, no ST segment elevation or depression seen, no T-wave inversions seen. Chest x-ray done in the ER showed no acute pulmonary process X-ray hip done showed right femoral intertrochanteric fracture with slightly displaced bone fragment medially CT head done showed no acute intracranial process, showed redemonstration of r ight frontal convexity meningioma CT cervical spine done showed no acute fractures Patient admitted to internal medicine service 04/17/2024 Patient is seen and evaluated in follow-up status post right hip closed reduction with nailing. Patient is lying flat currently with daughters at the bedside reporting she is weak and continues with pain and not eating much. Patient maintained on IV hydration currently on room air with no reports of chest pain or shortness of breath. Per family she has been at [facility] and will be returning there for continued PT/OT therapy. Will follow-up on repeat labs and continue to monitor closely. 04/18/2024 Patient seen and evaluated in follow-up today currently sitting up in the chair eating looking much improved today. Patient continues to have some right hip tenderness and awaiting to go to ECF. According to Medicare guidelines patient requires 3 night hospitalization stay prior to going to [facility]. Plan is for discharge to [facility] on 04/19/2024. Patient is afebrile and denies any chest pain or shortness of breath. Patient has been tolerating diet and eating a fair amount. Family at the bedside and questions and concerns were answered. Review of systems: Constitutional: No reports of fatigue, fever, or chills Cardiovascular: No reports of chest pain or palpitations Respiratory: No reports of shortness of breath or cough GI: No reports of nausea, vomiting, or diarrhea, reports not much of an appetite but eating a little more : No reports of dysuria or retention Neurovascular: reports of weakness and right hip pain All medications have been reviewed PHYSICAL EXAMINATION: GENERAL: The patient is alert and oriented x1, awake. Elderly appearing, ill- appearing, obese history of dementia HEENT: Pupils are round and equally reacting to light. EOMI. No scleral icterus. No conjunctival pallor. Normocephalic, atraumatic. No pharyngeal erythema. No thyromegaly. CARDIOVASCULAR: S1 and S2 muffled PULMONARY: Diminished breath sounds bilaterally otherwise chest is clear to auscultation, no wheezing or crackles. ABDOMEN: Soft, nontender, nondistended, normoactive bowel sounds. No palpable organomegaly. MUSCULOSKELETAL: Right hip tenderness, surgical dressing site is dry and intact EXTREMITIES: No cyanosis, clubbing, or pedal edema. NEUROLOGICAL: Gross neurological examination did not reveal any focal deficits. Diffusely weak SKIN: No rashes. Pale Assessment: Fall with right hip fracture, status post closed reduction and nailing History of dementia History of seizures Hyperlipidemia Morbid obesity with a BMI of 43.0 GI prophylaxis DVT prophylaxis No code Plan: Patient is status postsurgical procedure for the right hip having some pain recommend cautiously using IV narcotics along with narcotics due to age and history of dementia Continue to reorient patient and family members present at the bedside, recommending staying at bedside. Will add Seroquel as needed at night Encouraged incentive spirometer use at least 10 times every hour while awake. Encouraged to increase activity as tolerated with PT/OT therapy evaluation. Plan will be to return to [facility] and will discuss with case management regarding discharge planning. According to Medicare guidelines patient requires 3 night hospitalization and will discharge on 04/19/2024. Risks versus benefits were explained to the patient and family prior to surgery as patient was considered moderate risk and willing to proceed for patient to be able to walk again CODE STATUS is addressed and patient is no code postsurgery We will continue to follow with orthopedics during hospitalization. Thank you kindly for this consultation. The impression and plan of care has been dictated by Vilma Calix, Nurse Practitioner as directed. Dr. Ayaan MD I have performed a history and examination and MDM of this patient, discussed the same with the dictator, and agree with the dictator's assessment and plan as written ,documented as a scribe. Based on total visit time, I have performed more than 50% of the visit. Objective - Vital Signs Vital signs: Vital Signs Temp 97.9 F 04/18/24 08:00 Pulse 85 04/18/24 08:00 Resp 16 04/18/24 08:00 BP 122/73 04/18/24 08:00 Pulse Ox 99 04/18/24 08:00 FiO2 Intake & Output 04/17/24 04/18/24 04/18/24 18:59 06:59 18:59 Other: Voiding Method Bedside Commode Bedside Commode # Voids 1 2 2 # Bowel Movements 1 1 - Labs CBC & Chem 7: 04/18/24 14:27 04/18/24 03:16 Labs: Abnormal Lab Results - Last 24 Hours (Table) 04/18/24 Range/Units 03:16 Sodium 134 L (135-145) mmol/L Glucose 142 H (70-110) mg/dL Calcium 7.9 L (8.7-10.3) mg/dL
[2024-04-19 09:28] VITALS: RESP 17
--- NOTE | 2024-04-19 10:44 | P.DS ---
Providers Date of admission: 04/16/24 02:53 Expected date of discharge: 04/19/24 Attending physician: Javon Gardner MD Consults: 04/16/24 02:53 Consult Physician Routine Consulting Provider: Paul Kuo Consult [facility] want consulting provider notified?: Yes Primary care physician: Dtoty Grider - Discharge Diagnosis(es) (1) Closed right hip fracture Current Visit: Yes Status: Acute (2) Fall Current Visit: Yes Status: Acute Hospital Course: This is an 89-year-old female who sustained a fracture of her right hip after a fall on 04/16/2024. The patient presented for evaluation in the emergency room where x-rays revealed right intertrochanteric hip fracture. After discussion and consideration the patient's family elects to proceed with intramedullary nailing of the right hip. The patient is seen preoperatively by Dr. Gardner and medically cleared for surgery by internal medicine. Patient is admitted to [facility] on 04/16/2024 and open reduction and intramedullary fixation of the right hip is performed on 04/16/2024. The procedure is performed without complication or sequelae. The patient is doing well postoperatively. Labs and vital signs are stable on day of discharge. On day of discharge patient's hip incisions are healing well. There is minimal erythema. There is no drainage noted at this time. There is minimal soft tissue swelling to the hip and thigh. Patient has full foot and ankle motion without difficulty or pain. Calf is soft and nontender to palpation. Neurovascular status to the right lower extremity is intact. Patient is discharged to rehab in good condition. Please see [facility] rec for accurate list of home medications. Patient Condition at Discharge: Fair Plan - Discharge Summary Discharge Rx Participant: Yes New Discharge Prescriptions: New Aspirin [Adult Low Dose Aspirin EC] 81 mg PO BID 30 Days #60 tab HYDROcodone/APAP 5-325MG [[place] 5-325] 1 tab PO Q6HR PRN #28 tab PRN Reason: Pain Sennosides [Senokot] 2 tab PO DAILY PRN #60 tablet PRN Reason: Constipation No Action levETIRAcetam [Keppra] 500 mg PO Q12H Losartan [Cozaar] 25 mg PO DAILY HYDROcodone/APAP 7.5-325MG [[place] 7.5-325] 1 tab PO Q4H Aspirin 81 mg PO DAILY ALPRAZolam [Xanax] 0.25 mg PO Q12H PRN PRN Reason: Anxiety/Agitation Acetaminophen Tab [Tylenol Tab] 500 mg PO TID methocarbamoL [Robaxin] 500 mg PO Q6H Melatonin 3 mg PO HS Discharge Medication List ALPRAZolam [Xanax] 0.25 mg PO Q12H PRN 04/16/24 [History] Acetaminophen Tab [Tylenol Tab] 500 mg PO TID 04/16/24 [History] Aspirin 81 mg PO DAILY 04/16/24 [History] HYDROcodone/APAP 7.5-325MG [[place] 7.5-325] 1 tab PO Q4H 04/16/24 [History] Losartan [Cozaar] 25 mg PO DAILY 04/16/24 [History] Melatonin 3 mg PO HS 04/16/24 [History] levETIRAcetam [Keppra] 500 mg PO Q12H 04/16/24 [History] methocarbamoL [Robaxin] 500 mg PO Q6H 04/16/24 [History] Aspirin [Adult Low Dose Aspirin EC] 81 mg PO BID 30 Days #60 tab 04/19/24 [Rx] HYDROcodone/APAP 5-325MG [[place] 5-325] 1 tab PO Q6HR PRN #28 tab 04/19/24 [Rx] Sennosides [Senokot] 2 tab PO DAILY PRN #60 tablet 04/19/24 [Rx] Follow up Appointment(s)/Referral(s): Darian Tesfaye DO [Doctor of Osteopathic Medicine] - 2 Weeks Darian Doherty DO [Doctor of Osteopathic Medicine] - 1-2 days Activity/Diet/Wound Care/Special Instructions: Weightbearing as tolerated with walker. Leave dressing intact. Dressing may be removed by home care nurse or by patient in 7 days. Then change dressing twice daily until follow up. May shower with initial dressing intact and after removal. If dressing become saturated, please remove. Please take aspirin 81mg twice daily for 30 days to prevent blood clots. Recommend use of compression stockings daily until follow up to help prevent swelling and blood clots. May remove at night before sleeping. Please follow-up with [facility] in 2 weeks and call with any questions or concerns, . Discharge Disposition: TRANSFER TO SNF/ECF
--- NOTE | 2024-04-19 11:13 | P.PN ---
Subjective Progress Note Date: 04/19/24 - Reason for Consult Consult date: 04/16/24 Medical management - History of Present Illness History of present illness; patient is 88-year-old lady with past medical history significant for hyperlipidemia, dementia who is currently resident of a [facility]p was brought to the ER after a fall. Patient is currently a resident of a memory care unit at [facility], normally uses a walker to walk but was noted to be not using walker during this episode and she fell on her right side. Patient did not lose her consciousness. There was no complaint of any lightheaded dizziness prior to the episode. Because of this episode, patient brought to the ER Initial lab work done in the ER showed WBC 1.2, hemoglobin 12.2, platelet count 262, sodium 134, potassium 3.8, chloride 106, carbon is a 26, BUN 13, creatinine 0.54, glucose 126, calcium 8.9, phosphorus 3.6, magnesium 1.8 EKG done in the ER showed heart rate of 79, no ST segment elevation or depression seen, no T-wave inversions seen. Chest x-ray done in the ER showed no acute pulmonary process X-ray hip done showed right femoral intertrochanteric fracture with slightly displaced bone fragment medially CT head done showed no acute intracranial process, showed redemonstration of r ight frontal convexity meningioma CT cervical spine done showed no acute fractures Patient admitted to internal medicine service 04/17/2024 Patient is seen and evaluated in follow-up status post right hip closed reduction with nailing. Patient is lying flat currently with daughters at the bedside reporting she is weak and continues with pain and not eating much. Patient maintained on IV hydration currently on room air with no reports of chest pain or shortness of breath. Per family she has been at [facility] and will be returning there for continued PT/OT therapy. Will follow-up on repeat labs and continue to monitor closely. 04/18/2024 Patient seen and evaluated in follow-up today currently sitting up in the chair eating looking much improved today. Patient continues to have some right hip tenderness and awaiting to go to ECF. According to Medicare guidelines patient requires 3 night hospitalization stay prior to going to [facility]. Plan is for discharge to [facility] on 04/19/2024. Patient is afebrile and denies any chest pain or shortness of breath. Patient has been tolerating diet and eating a fair amount. Family at the bedside and questions and concerns were answered. 04/19/2024 Patient is seen in follow-up today no acute overnight issues noted. Plan is for patient to go to [facility] today for continued PT/OT therapy. Patient was required to stay 3 nights due to Medicare guidelines and will be discharged to [facility] today. Patient is afebrile with no reports of chest pain or shortness of breath. Patient does have history of dementia and recommend to resume home medications. Monitor closely on narcotic use and also would recommend Seroquel as needed at night. Patient is medically stable once cleared by orthopedics for discharge. Review of systems: Constitutional: No reports of fatigue, fever, or chills Cardiovascular: No reports of chest pain or palpitations Respiratory: No reports of shortness of breath or cough GI: No reports of nausea, vomiting, or diarrhea, reports not much of an appetite but eating a little more : No reports of dysuria or retention Neurovascular: reports of weakness and right hip pain All medications have been reviewed PHYSICAL EXAMINATION: GENERAL: The patient is alert and oriented x1, awake. Elderly appearing, ill- appearing, obese history of dementia HEENT: Pupils are round and equally reacting to light. EOMI. No scleral icterus. No conjunctival pallor. Normocephalic, atraumatic. No pharyngeal erythema. No thyromegaly. CARDIOVASCULAR: S1 and S2 muffled PULMONARY: Diminished breath sounds bilaterally otherwise chest is clear to auscultation, no wheezing or crackles. ABDOMEN: Soft, nontender, nondistended, normoactive bowel sounds. No palpable organomegaly. MUSCULOSKELETAL: Right hip tenderness, surgical dressing site is dry and intact EXTREMITIES: No cyanosis, clubbing, or pedal edema. NEUROLOGICAL: Gross neurological examination did not reveal any focal deficits. Diffusely weak SKIN: No rashes. Pale Assessment: Fall with right hip fracture, status post closed reduction and nailing History of dementia History of seizures Hyperlipidemia Morbid obesity with a BMI of 43.0 GI prophylaxis DVT prophylaxis No code Plan: Patient is status postsurgical procedure for the right hip having some pain recommend cautiously using IV narcotics along with narcotics due to age and history of dementia Continue to reorient patient and family members present at the bedside, recommending staying at bedside. Will add Seroquel as needed at night Encouraged incentive spirometer use at least 10 times every hour while awake. Patient needs assistance and encouragement with using this and reminders. Encouraged to increase activity as tolerated with PT/OT therapy evaluation. Plan will be to return to [facility] [place] today 04/19/2024. Risks versus benefits were explained to the patient and family prior to surgery as patient was considered moderate risk and willing to proceed for patient to be able to walk again CODE STATUS is addressed and patient is no code postsurgery We will continue to follow with orthopedics during hospitalization. Thank you kindly for this consultation. Patient is medically stable once cleared by orthopedics. The impression and plan of care has been dictated by Vilma Calix, Nurse Practitioner as directed. Dr. Ayaan MD I have performed a history and examination and MDM of this patient, discussed the same with the dictator, and agree with the dictator's assessment and plan as written ,documented as a scribe. Based on total visit time, I have performed more than 50% of the visit. Objective - Vital Signs Vital signs: Vital Signs Temp 98.9 F 04/19/24 07:49 Pulse 70 04/19/24 07:49 Resp 17 04/19/24 07:49 BP 99/56 04/19/24 07:49 Pulse Ox 98 04/19/24 07:49 FiO2 Intake & Output 04/18/24 04/19/24 04/19/24 18:59 06:59 18:59 Intake Total 118 Output Total 125 Balance 118 -125 Intake: Oral 118 Output: Urine 125 Other: Voiding Method Bedside Commode Bedside Commode Bedside Commode # Voids 6 7 # Bowel Movements 1 1 - Labs CBC & Chem 7: 04/18/24 14:27 04/18/24 03:16 Labs: Abnormal Lab Results - Last 24 Hours (Table) 04/18/24 Range/Units 14:27 RBC 2.29 L (3.80-5.40) m/uL Hgb 7.3 L D (11.4-16.0) gm/dL Hct 21.6 L (34.0-46.0) %
[2024-04-19 14:22] VITALS: BP 114/65; PULSE 68; TEMP 97.6
== END 2024-04-19 14:55 | DRG 481 ==
LOC: EC 01:10 → 4SSUR 02:53
PROVIDERS: ADMIT Orthopaedic Surgery; ATTEND Orthopaedic Surgery
PROC: 0QS606Z Reposition Right Upper Femur with Intramedullary Internal Fixation Device, Open Approach (ICD-10-PCS; principal; 2024-04-16 09:20)
DX: S72.141A Displaced intertrochanteric fracture of right femur, initial encounter for closed fracture (principal); Z68.41 Body mass index [BMI] 40.0-44.9, adult; G40.909 Epilepsy, unspecified, not intractable, without status epilepticus; F03.C0 Unspecified dementia, severe, without behavioral disturbance, psychotic disturbance, mood disturbance, and anxiety; E78.5 Hyperlipidemia, unspecified; D32.9 Benign neoplasm of meninges, unspecified; E66.01 Morbid (severe) obesity due to excess calories; W19.XXXA Unspecified fall, initial encounter; Y92.129 Unspecified place in nursing home as the place of occurrence of the external cause; Z96.651 Presence of right artificial knee joint; Z79.82 Long term (current) use of aspirin; Z79.899 Other long term (current) drug therapy; Z85.828 Personal history of other malignant neoplasm of skin; Z87.891 Personal history of nicotine dependence; Z90.710 Acquired absence of both cervix and uterus
CPT/HCPCS: 36415; 70450; 71045; 72125; 73502; 80048; 80053; 81001; 83735; 83880; 84100; 84484; 85025; 85610; 85730; 93005; 96361; 96374; 96375; 99285